=== PATIENT | male | born 1940 | race Two or more races ===

== ENCOUNTER 2017-02-12 19:27 | Emergency (ER) | payer OTHER, MEDICAID ==
--- NOTE | 2017-02-12 19:45 | EDPHY ---
H & P Time Seen by Provider: 02/12/17 19:35 HPI/ROS: CHIEF COMPLAINT: Abnormal vital signs HISTORY OF PRESENT ILLNESS: The patient presents to the emergency department by paramedics from [place]. He has a history of chronic dementia. By report he is referred to the emergency department secondary to abnormal vital signs. The patient was initially quite uncooperative did not want to come to the hospital. His history is limited by dementia. In the emergency department , the patient denies any complaints of acute pain. The patient states he is uncertain why he is here and simply would like to be return to his facility. The patient's records reveal that he has a history of diabetes, dementia and BPH. The patient has had no history of fever. Paramedics reported he was tachycardic. It is unclear whether there has been no history of vomiting or cough. REVIEW OF SYSTEMS: A comprehensive 10 point review of systems is unobtainable secondary to his dementia Source: Patient, EMS, [employer], [facility] records - Medical/Surgical History Hx Asthma: No Hx Chronic Respiratory Disease: No Hx Diabetes: Yes Hx Cardiac Disease: Yes Hx Renal Disease: No Hx Cirrhosis: No Hx Alcoholism: No Hx HIV/AIDS: No Hx Splenectomy or Spleen Trauma: No Other PMH: Hypertension, hyperlipidemia, diabetes, CVA, dementia, BPH, CAD, diverticulitis, right pelvic abscess, - Social History Smoking Status: Light smoker - Physical Exam Exam: General Appearance: Elderly obese male, no acute distress Eyes: Pupils equal and round no pallor or injection ENT, Mouth: Mucous membranes moist Respiratory: There are no retractions, lungs are clear to auscultation Cardiovascular: Regular rate and rhythm Gastrointestinal: Abdomen is soft and nontender, no masses, bowel sounds normal Neurological: Alert and oriented x1 - suspect this is baseline, 5/5 strength noted all 4 extremities without focal deficit Skin: Warm and dry, no rashes Musculoskeletal: Neck is supple nontender Extremities: symmetrical, full range of motion Constitutional: Initial Vital Signs Temperature (C) 37.1 C 02/12/17 19:44 Heart Rate 102 H 02/12/17 19:44 Respiratory Rate 18 02/12/17 19:44 Blood Pressure 128/77 H 02/12/17 19:44 O2 Sat (%) 94 02/12/17 19:44 O2 Delivery Mode Nasal Cannula O2 (L/minute) 2 Allergies/Adverse Reactions: No Known Allergies Allergy (Unverified 12/28/11 13:41) Home Medications: Medication Instructions Recorded Aspirin [Aspirin 81mg (*)] 81 mg PO DAILY 12/28/11 Finasteride [Proscar 5 MG (*)] 5 mg PO DAILY #7 tab 01/08/12 Lisinopril [Zestril 5 mg (*)] 5 mg PO DAILY #7 tab 01/08/12 Tamsulosin HCl [Flomax 0.4 MG (*)] 0.4 mg PO HS #7 cap 01/08/12 Acetaminophen [Tylenol 325mg (*)] 650 mg PO Q6 PRN 09/25/14 Atorvastatin Calcium [Lipitor 10 10 mg PO DAILY 09/25/14 mg (*)] Gabapentin [Neurontin 300 MG (*)] 300 mg PO BID@18,09/25/14 Gabapentin [Neurontin 400 MG (*)] 400 mg PO DAILY@12 09/25/14 Levothyroxine [Synthroid 25 mcg 25 mcg PO DAILY06 09/25/14 (*)] Metoprolol Tartrate [Lopressor 50 50 mg PO HS 09/25/14 mg (*)] Polyethylene Glycol 3350 [Miralax 17 gm PO DAILY 09/25/14 17 gm (*)] glipiZIDE XL [Glucotrol XL 10 MG 10 mg PO DAILY 09/25/14 (*)] guaiFENesin/DEXTROMETHORPHAN 10 ml PO Q6 PRN 09/25/14 [Robitussin Dm Oral Liquid (*)] metFORMIN HCL [Glucophage 500 mg 1,000 mg PO BIDMEAL 09/25/14 (*)] Alteplase [Cathflo Activase 2 mg 2 mg IVP PRN PRN #0 vial 10/08/14 (*)] Ampicillin/Sulbactam [Unasyn] 3 gm IV Q6 #0 vial 10/08/14 Micafungin Na [Mycamine 100Mg Vial] 100 mg IV DAILY #0 vial 10/08/14 oxyCODONE IR [Oxycodone Ir (*)] 5 - 10 mg PO Q4 PRN #0 tab 10/08/14 Medical Decision Making - Diagnostics EKG Interpretation: EKG: Complete interpretation has been separately recorded in the [employer] archive. Summary impression: Sinus rhythm, rate 98 ED Course/Re-evaluation: The patient has been completely cooperative in the emergency department he is afebrile. He has no leukocytosis. His EKG demonstrates a sinus rhythm. He is in no acute distress. His laboratory studies are within normal limits. At this point time I do feel the patient can be discharged home. He has no evidence of pneumonia or heart failure on his x-ray. Differential Diagnosis: Differential diagnosis considered includes pneumonia, metabolic abnormality, febrile illness, dehydration, renal failure - Data Points Laboratory Results: Laboratory Results 02/12/17 19:55 02/12/17 19:55 02/12/17 02/12/17 19:55 19:55 WBC 8.90 10^3/uL 10^3/uL (3.80-9.50) RBC 5.33 10^6/uL 10^6/uL (4.40-6.38) Hgb 15.9 g/dL g/dL (13.7-17.5) Hct 48.9 % % (40.0-51.0) MCV 91.7 fL fL (81.5-99.8) MCH 29.8 pg pg (27.9-34.1) MCHC 32.5 g/dL g/dL (32.4-36.7) RDW 15.3 % H % (11.5-15.2) Plt Count 218 10^3/uL 10^3/uL (150-400) MPV 9.2 fL fL (8.7-11.7) Neut % (Auto) 63.0 % % (39.3-74.2) Lymph % (Auto) 29.1 % % (15.0-45.0) [place] % (Auto) 5.5 % % (4.5-13.0) Eos % (Auto) 1.9 % % (0.6-7.6) Baso % (Auto) 0.3 % % (0.3-1.7) Nucleat RBC Rel Count 0.0 % % (0.0-0.2) Absolute Neuts (auto) 5.60 10^3/uL 10^3/uL (1.70-6.50) Absolute Lymphs (auto) 2.59 10^3/uL 10^3/uL (1.00-3.00) Absolute Monos (auto) 0.49 10^3/uL 10^3/uL (0.30-0.80) Absolute Eos (auto) 0.17 10^3/uL 10^3/uL (0.03-0.40) Absolute Basos (auto) 0.03 10^3/uL 10^3/uL (0.02-0.10) Absolute Nucleated RBC 0.00 10^3/uL 10^3/uL (0-0.01) Immature Gran % 0.2 % % (0.0-1.1) Immature Gran # 0.02 10^3/uL 10^3/uL (0.00-0.10) Sodium 137 mEq/L mEq/L (134-144) Potassium 4.5 mEq/L mEq/L (3.5-5.2) Chloride 103 mEq/L mEq/L (97-110) Carbon Dioxide 23 mEq/l mEq/l (22-31) Anion Gap 11 mEq/L mEq/L (8-16) BUN 23 mg/dL mg/dL (7-23) Creatinine 1.1 mg/dL mg/dL (0.7-1.3) Estimated GFR > 60 Glucose 83 mg/dL mg/dL (70-100) Calcium 8.9 mg/dL mg/dL (8.5-10.4) Troponin I < 0.012 ng/mL ng/mL (0.000-0.034) NT-Pro-B Natriuret Pep 58 pg/mL pg/mL (0-450) Departure - Departure Disposition: Home, Routine, Self-Care Clinical Impression: Dementia Condition: Good Instructions: Dementia (ED) Additional Instructions: 1. Please return to emergency department for any pain, fever, vomiting or other concerns. 2. The workup in the emergency department today demonstrates a a normal CBC, serum chemistries, EKG and chest x-ray.
--- NOTE | 2017-02-12 20:02 | CPEKG ---
Heart Rate: 98 RR Interval: 612 P-R Interval: 160 QRSD Interval: 82 QT Interval: 364 QTC Interval: 465 P [place]: 63 QRS [place]: -57 T Wave [place]: 13 EKG Severity - ABNORMAL ECG - EKG Impression: SINUS RHYTHM EKG Impression: LEFT ANTERIOR FASCICULAR BLOCK Electronically Signed By: Rubio Talavera 12-Feb-2017 20:04:38
[2017-02-12 20:10] LABS: % IMMATURE GRANULYOCYTES 0.2 % (0.0-1.1); ABSOLUTE IMMATURE GRANULOCYTES 0.02 10^3/uL (0.00-0.10); ADD DIFF? NO; ADD MORPH? NO; ADD SCAN? NO; ATYPICAL LYMPHOCYTE FLAG 0 (0-99); FRAGMENT RBC FLAG 0 (0-99); HEMATOCRIT 48.9 % (40.0-51.0); HEMOGLOBIN 15.9 g/dL (13.7-17.5); LEFT SHIFT FLG 0 (0-99); LIPEMIA HEMOLYSIS FLAG 80 (0-99); MEAN CELL HEMOGLOBIN 29.8 pg (27.9-34.1); MEAN CELL HEMOGLOBIN CONCENTR. 32.5 g/dL (32.4-36.7); MEAN CELL VOLUME 91.7 fL (81.5-99.8); MEAN PLATELET VOLUME 9.2 fL (8.7-11.7); PLATELET CLUMPS FLAG 0 (0-99); PLATELET COUNT 218 10^3/uL (150-400); RED BLOOD CELL COUNT 5.33 10^6/uL (4.40-6.38); RED CELL DISTRIBUTION WIDTH 15.3 % (11.5-15.2)
[2017-02-12 20:13] LABS: ANION GAP 11 mEq/L (8-16); CALCIUM 8.9 mg/dL (8.5-10.4); CARBON DIOXIDE 23 mEq/l (22-31); CHLORIDE 103 mEq/L (97-110); CREATININE 1.1 mg/dL (0.7-1.3); GLOMERULAR FILTRATION RATE > 60; GLUCOSE 83 mg/dL (70-100); POTASSIUM 4.5 mEq/L (3.5-5.2); SODIUM 137 mEq/L (134-144)
[2017-02-12 20:24] LABS: TROPONIN I < 0.012 ng/mL (0.000-0.034)
[2017-02-12 20:47] VITALS: RESP 20; O2SAT 93
[2017-02-12 22:05] VITALS: BP 118/88; PULSE 100; TEMP 98.2
== END 2017-02-12 21:50 | disposition home or self-care (01) ==
LOC: EDUNIT#
DX: F03.90 Unspecified dementia, unspecified severity, without behavioral disturbance, psychotic disturbance, mood disturbance, and anxiety (principal); I10 Essential (primary) hypertension; E11.9 Type 2 diabetes mellitus without complications; I25.10 Atherosclerotic heart disease of native coronary artery without angina pectoris; F17.200 Nicotine dependence, unspecified, uncomplicated; Z79.82 Long term (current) use of aspirin; Z86.73 Personal history of transient ischemic attack (TIA), and cerebral infarction without residual deficits

== ENCOUNTER 2017-02-18 16:04 | Inpatient (IN) | payer OTHER, MEDICAID ==
--- NOTE | 2017-02-18 16:26 | EDPHY ---
H & P Time Seen by Provider: 02/18/17 16:04 HPI/ROS: CHIEF COMPLAINT: Left-sided chest pain after fall HISTORY OF PRESENT ILLNESS: Patient says he had a mechanical fall yesterday or the day before landing on his left side and he has had severe left upper posterior chest pain ever since which is worse with movement or taking a deep breath. He presents by EMS from [place] with low oxygen saturations in the mid 80s. Patient says it hurts to take a deep breath. Denies abdominal pain nausea or vomiting. Had baron and eggs for breakfast. No hematuria. Symptoms mild at rest or moderate to severe with movement or breathing. REVIEW OF SYSTEMS: Eye: no change in vision ENT: no sore throat Cardiac: HPI no syncope Pulmonary: HPI Abdomen: no vomiting, diarrhea, abdominal pain Musculoskeletal: no back pain Skin: no rash or laceration Neuro: no headache Constitutional: no fever : no urinary symptoms A comprehensive 10 point review of systems is otherwise negative aside from elements mentioned in the history of present illness. PAST MEDICAL HISTORY: Records from [place] reviewed include dementia, diabetes, hypertension hyperlipidemia and hypothyroidism, low back pain, gout. Prostatic hypertrophy. Social history: [place] resident, tobacco smoker. General Appearance: Alert and conversant, cooperative. Eyes: No scleral icterus. ENT, Mouth: Normal mucous membranes. Respiratory: Patient is splinting, decreased breath sounds bilaterally. Cardiovascular: Regular rate and rhythm. Gastrointestinal: Abdomen is soft and non tender. Neurological: Alert and oriented x3. Normally conversant. Face symmetric, normal movement and sensation in all extremities. Skin: Warm and dry, no rashes. Musculoskeletal: No cervical thoracic or lumbar spine tenderness. He is very point tenderness to touch on his ribs just below his scapula in the back. Psychiatric: Not agitated. Emergency Department course/MDM: Patient is a history of dementia. History of fall seems clear but given his history I am not 100% convinced of his reliability. Chest x-ray and D-dimer performed. Clearly not acute coronary syndrome or cardiac by history. Supplementary oxygen applied because of room air saturation in the 80s. Trina 1828. 1839: CTA per [facility] shows no evidence of pulmonary embolism. Ordered for left-sided pleuritic chest pain with elevated D-dimer. Admission to trauma surgeon with left chest contusion with hypoxia as well as right-sided subdural. Smoking Status: Light smoker Constitutional: Initial Vital Signs Temperature (C) 37 C 02/18/17 16:15 Heart Rate 81 02/18/17 16:15 Respiratory Rate 18 02/18/17 16:15 Blood Pressure 133/69 H 02/18/17 16:15 O2 Sat (%) 93 02/18/17 16:15 O2 Delivery Mode Nasal Cannula O2 (L/minute) 3 Allergies/Adverse Reactions: No Known Allergies Allergy (Unverified 12/28/11 13:41) Home Medications: Medication Instructions Recorded Finasteride [Proscar 5 MG (*)] 5 mg PO DAILY #7 tab 01/08/12 Gabapentin [Neurontin 400 MG (*)] 400 mg PO TID 09/25/14 Levothyroxine [Synthroid 25 mcg 25 mcg PO DAILY06 09/25/14 (*)] Polyethylene Glycol 3350 [Miralax 17 gm PO HS 09/25/14 17 gm (*)] glipiZIDE XL [Glucotrol XL 10 MG 10 mg PO DAILY 09/25/14 (*)] metFORMIN HCL [Glucophage 500 mg 1,000 mg PO BIDMEAL 09/25/14 (*)] Acetaminophen [Tylenol ES 500 mg 500 mg PO Q6 PRN 02/18/17 (*)] Allopurinol [Allopurinol 300 MG 300 mg PO DAILY 02/18/17 (RX)] Atorvastatin Calcium [Lipitor 10 10 mg PO HS 02/18/17 mg (*)] Colchicine [Colchicine (*)] 1.2 mg PO DAILY 02/18/17 DULoxetine [Cymbalta 30 MG (*)] 30 mg PO HS 02/18/17 Insulin Glargine [Lantus 100 30 units SC BID 02/18/17 UNITS/ML (*)] Insulin Lispro [humALOG LISPRO 100 10 unit SC TIDMEAL 02/18/17 units/ml (*)] Lisinopril [Zestril 10 mg (*)] 10 mg PO DAILY 02/18/17 Metoprolol Succinate 75 mg PO HS 02/18/17 Tamsulosin HCl [Flomax 0.4 MG (*)] 0.4 mg PO HS 02/18/17 Medical Decision Making - Diagnostics EKG Interpretation: 12-lead EKG interpreted by me; official reading is in trace master. My interpretation is sinus rhythm with left anterior fascicular block rate 85. Imaging Results: Imaging Impressions Chest X-Ray 02/18/17 16:22 Impression: Chronic cardiomegaly without decompensation. Chest/Thorax CTA 02/18/17 17:24 Impression: 1. Limited study, with no central pulmonary embolus. 2. Coronary artery atherosclerosis. 3. Bronchitis, with scattered mucous plugging. 4. Likely benign 3 mm left upper lobe nodule. If the patient is a smoker or is high risk, unenhanced low dose chest CT for follow up in 12 months is considered optional. Otherwise, no further follow up is needed per Fleischner Society criteria. 5. Additional findings, as above. Findings discussed with Vasiliy Youssef M.D., on February 18, 2017 at 1837. E:amm Head CT 02/18/17 17:26 Impression: 1. Mixed density likely acute on chronic right subdural hematoma measuring up to 2 cm, with 11 mm right to left midline shift. 2. Additional findings as above. Findings discussed with VASILIY YOUSSEF 02/18/2017 at 18:23. Differential Diagnosis: Differential for weakness considered including but not limited to intracranial abnormality, metabolic abnormality, infection such as UTI or pneumonia. Consult/Admit Bed Type: [place] [id number] Critical Care Time: Critical care time spent by me, Dr. Youssef, exclusively with the care of this patient was 30 minutes, exclusive of PA or LIFTER/DRIVER time and exclusive of separate procedures. The organ system at risk was neurologic and pulmonary and I ordered supplemental oxygen, multiple diagnostic studies discussion with as400 consultant surgeon and neurosurgeon, to stabilize the patient and prevent worsening of the patient's condition. - Data Points Laboratory Results: Laboratory Results 02/18/17 16:07 02/18/17 16:07 02/18/17 02/18/17 02/18/17 17:50 16:07 16:07 WBC RBC Hgb Hct MCV MCH MCHC RDW Plt Count MPV Neut % (Auto) Lymph % (Auto) [place] % (Auto) Eos % (Auto) Baso % (Auto) Nucleat RBC Rel Count Absolute Neuts (auto) Absolute Lymphs (auto) Absolute Monos (auto) Absolute Eos (auto) Absolute Basos (auto) Absolute Nucleated RBC Immature Gran % Immature Gran # PT INR APTT D-Dimer Turbidity Cancelled Sodium Potassium Chloride Carbon Dioxide Anion Gap BUN Creatinine Estimated GFR Glucose Calcium Troponin I 0.012 ng/mL ng/mL (0.000-0.034) Triglycerides Cancelled Cholesterol Cancelled Cholesterol Risk Factr Cancelled LDL Cholesterol, Calc Cancelled LDL Risk Factor Cancelled VLDL Cholesterol Cancelled Non-HDL Cholesterol Cancelled HDL Cholesterol Cancelled LDL/HDL Ratio Cancelled Cholesterol/HDL Ratio Cancelled Urine Color YELLOW Urine Appearance CLEAR Urine pH 5.0 (5.0-7.5) Ur Specific [place] 1.018 (1.002-1.030) Urine Protein 1+ H (NEGATIVE) Urine Ketones NEGATIVE (NEGATIVE) Urine Blood NEGATIVE (NEGATIVE) Urine Nitrate NEGATIVE (NEGATIVE) Urine Bilirubin NEGATIVE (NEGATIVE) Urine Urobilinogen NEGATIVE EU EU (0.2-1.0) Ur Leukocyte Esterase NEGATIVE (NEGATIVE) Urine RBC 5-10 /hpf H /hpf (0-3) Urine WBC 1-3 /hpf /hpf (0-3) Ur Epithelial Cells NONE SEEN /lpf /lpf (NONE-1+) Urine Glucose NEGATIVE (NEGATIVE) 02/18/17 02/18/17 02/18/17 16:07 16:07 16:07 WBC RBC Hgb Hct MCV MCH MCHC RDW Plt Count MPV Neut % (Auto) Lymph % (Auto) [place] % (Auto) Eos % (Auto) Baso % (Auto) Nucleat RBC Rel Count Absolute Neuts (auto) Absolute Lymphs (auto) Absolute Monos (auto) Absolute Eos (auto) Absolute Basos (auto) Absolute Nucleated RBC Immature Gran % Immature Gran # PT 12.6 SEC SEC (12.0-15.0) INR 0.95 (0.83-1.16) APTT 32.3 SEC SEC (23.0-38.0) D-Dimer 0.76 ug/mLFEU H ug/mLFEU (0.00-0.50) Turbidity Sodium 137 mEq/L mEq/L (134-144) Potassium 5.4 mEq/L H mEq/L (3.5-5.2) Chloride 103 mEq/L mEq/L (97-110) Carbon Dioxide 24 mEq/l mEq/l (22-31) Anion Gap 10 mEq/L mEq/L (8-16) BUN 18 mg/dL mg/dL (7-23) Creatinine 1.0 mg/dL mg/dL (0.7-1.3) Estimated GFR > 60 Glucose 91 mg/dL mg/dL (70-100) Calcium 8.9 mg/dL mg/dL (8.5-10.4) Troponin I Triglycerides Cholesterol Cholesterol Risk Factr LDL Cholesterol, Calc LDL Risk Factor VLDL Cholesterol Non-HDL Cholesterol HDL Cholesterol LDL/HDL Ratio Cholesterol/HDL Ratio Urine Color Urine Appearance Urine pH Ur Specific [place] Urine Protein Urine Ketones Urine Blood Urine Nitrate Urine Bilirubin Urine Urobilinogen Ur Leukocyte Esterase Urine RBC Urine WBC Ur Epithelial Cells Urine Glucose 02/18/17 16:07 WBC 9.20 10^3/uL 10^3/uL (3.80-9.50) RBC 5.11 10^6/uL 10^6/uL (4.40-6.38) Hgb 15.5 g/dL g/dL (13.7-17.5) Hct 47.8 % % (40.0-51.0) MCV 93.5 fL fL (81.5-99.8) MCH 30.3 pg pg (27.9-34.1) MCHC 32.4 g/dL g/dL (32.4-36.7) RDW 15.2 % % (11.5-15.2) Plt Count 235 10^3/uL 10^3/uL (150-400) MPV 9.3 fL fL (8.7-11.7) Neut % (Auto) 67.0 % % (39.3-74.2) Lymph % (Auto) 24.1 % % (15.0-45.0) [place] % (Auto) 5.7 % % (4.5-13.0) Eos % (Auto) 2.5 % % (0.6-7.6) Baso % (Auto) 0.4 % % (0.3-1.7) Nucleat RBC Rel Count 0.0 % % (0.0-0.2) Absolute Neuts (auto) 6.16 10^3/uL 10^3/uL (1.70-6.50) Absolute Lymphs (auto) 2.22 10^3/uL 10^3/uL (1.00-3.00) Absolute Monos (auto) 0.52 10^3/uL 10^3/uL (0.30-0.80) Absolute Eos (auto) 0.23 10^3/uL 10^3/uL (0.03-0.40) Absolute Basos (auto) 0.04 10^3/uL 10^3/uL (0.02-0.10) Absolute Nucleated RBC 0.00 10^3/uL 10^3/uL (0-0.01) Immature Gran % 0.3 % % (0.0-1.1) Immature Gran # 0.03 10^3/uL 10^3/uL (0.00-0.10) PT INR APTT D-Dimer Turbidity Sodium Potassium Chloride Carbon Dioxide Anion Gap BUN Creatinine Estimated GFR Glucose Calcium Troponin I Triglycerides Cholesterol Cholesterol Risk Factr LDL Cholesterol, Calc LDL Risk Factor VLDL Cholesterol Non-HDL Cholesterol HDL Cholesterol LDL/HDL Ratio Cholesterol/HDL Ratio Urine Color Urine Appearance Urine pH Ur Specific [place] Urine Protein Urine Ketones Urine Blood Urine Nitrate Urine Bilirubin Urine Urobilinogen Ur Leukocyte Esterase Urine RBC Urine WBC Ur Epithelial Cells Urine Glucose Medications Given: Hydrocodone Bitart/Acetaminophen ([place] 5/325) 1 - 2 tab PO Q4HRS PRN PRN Reason: Pain, Moderate Able to Take PO Stop: 02/28/17 20:01 Last Admin: 02/18/17 20:32 Dose: 1 tab Atorvastatin Calcium (Lipitor) 10 mg PO [facility] Stop: 08/17/17 20:59 Last Admin: 02/18/17 21:19 Dose: 10 mg Duloxetine HCl (Cymbalta) 30 mg PO [facility] Stop: 08/17/17 20:59 Last Admin: 02/18/17 21:19 Dose: 30 mg Gabapentin (Neurontin) 400 mg PO TID [facility] Stop: 08/17/17 21:59 Last Admin: 02/18/17 21:15 Dose: 400 mg Levetiracetam 1,000 mg/ Sodium (Chloride) 110 mls @ 440 mls/hr IV BID [facility] Stop: 08/17/17 20:44 Last Admin: 02/18/17 21:42 Dose: 110 mls Insulin Glargine (Lantus Syringe) 30 units SC BID [facility] Stop: 08/17/17 20:59 Last Admin: 02/18/17 22:07 Dose: Not Given Metoprolol Succinate (Toprol Xl) 75 mg PO [facility] Stop: 08/17/17 20:59 Last Admin: 02/18/17 21:15 Dose: 75 mg Miscellaneous (Unruly-Ease 2 Gm) 2 husam TP Q1 PRN PRN Reason: Dry Nose Stop: 08/17/17 21:04 Last Admin: 02/18/17 21:11 Dose: 2 husam Morphine Sulfate (Morphine) 1 - 2 mg IVP Q1HR PRN PRN Reason: Pain, Severe Unable to Take PO Stop: 02/28/17 20:01 Last Admin: 02/18/17 22:09 Dose: 2 mg Polyethylene Glycol (Miralax) 17 gm PO HS SAL Stop: 08/17/17 20:59 Last Admin: 02/18/17 21:20 Dose: Not Given Tamsulosin HCl (Flomax) 0.4 mg PO HS SAL Stop: 08/17/17 20:59 Last Admin: 02/18/17 21:20 Dose: 0.4 mg Discontinued Medications Lidocaine (Lidoderm 5%) 1 ea TD EDNOW ONE Stop: 02/18/17 17:55 Last Admin: 02/18/17 18:23 Dose: 1 ea Miscellaneous Information (Patch Removal) 1 ea TD DAILY21 ONE Stop: 02/18/17 21:01 Last Admin: 02/18/17 21:20 Dose: Not Given Departure - Departure Disposition: [facility] Acute Clinical Impression: Subdural hematoma Contusion of left chest wall Qualifiers: Encounter type: initial encounter Qualified Code(s): S20.212A - Contusion of left front wall of thorax, initial encounter Condition: Serious
[2017-02-18 16:31] LABS: % IMMATURE GRANULYOCYTES 0.3 % (0.0-1.1); ABSOLUTE IMMATURE GRANULOCYTES 0.03 10^3/uL (0.00-0.10); ADD DIFF? NO; ADD MORPH? NO; ADD SCAN? NO; ATYPICAL LYMPHOCYTE FLAG 20 (0-99); FRAGMENT RBC FLAG 0 (0-99); HEMATOCRIT 47.8 % (40.0-51.0); HEMOGLOBIN 15.5 g/dL (13.7-17.5); LEFT SHIFT FLG 0 (0-99); LIPEMIA HEMOLYSIS FLAG 80 (0-99); MEAN CELL HEMOGLOBIN 30.3 pg (27.9-34.1); MEAN CELL HEMOGLOBIN CONCENTR. 32.4 g/dL (32.4-36.7); MEAN CELL VOLUME 93.5 fL (81.5-99.8); MEAN PLATELET VOLUME 9.3 fL (8.7-11.7); PLATELET CLUMPS FLAG 10 (0-99); PLATELET COUNT 235 10^3/uL (150-400); RED BLOOD CELL COUNT 5.11 10^6/uL (4.40-6.38); RED CELL DISTRIBUTION WIDTH 15.2 % (11.5-15.2)
[2017-02-18 16:48] LABS: ANION GAP 10 mEq/L (8-16); CALCIUM 8.9 mg/dL (8.5-10.4); CARBON DIOXIDE 24 mEq/l (22-31); CHLORIDE 103 mEq/L (97-110); GLOMERULAR FILTRATION RATE > 60; GLUCOSE 91 mg/dL (70-100); POTASSIUM 5.4 mEq/L (3.5-5.2); SODIUM 137 mEq/L (134-144)
[2017-02-18] MEDS ORDERED: IOPAMIDOL (ISOVUE 370) 100 ML BTL IV ONE (17:27)
[2017-02-18] MEDS ORDERED: LIDOCAINE 5% 1 EA PATCH TD ONE (17:54)
[2017-02-18 18:02] LABS: COLOR YELLOW; LEUKOCYTE ESTERASE,URINE NEGATIVE (NEGATIVE); NITRITE,URINE NEGATIVE (NEGATIVE)
--- NOTE | 2017-02-18 18:24 | CPEKG ---
Heart Rate: 85 RR Interval: 706 P-R Interval: 172 QRSD Interval: 92 QT Interval: 392 QTC Interval: 467 P [place]: 58 QRS [place]: -56 T Wave [place]: 32 EKG Severity - ABNORMAL ECG - EKG Impression: SINUS RHYTHM EKG Impression: LEFT ANTERIOR FASCICULAR BLOCK Electronically Signed By: Nikhil Moore 18-Feb-2017 18:47:22
[2017-02-18 18:36] LABS: INR 0.95 (0.83-1.16); PROTIME(PATIENT) 12.6 SEC (12.0-15.0)
[2017-02-18 18:37] LABS: APTT 32.3 SEC (23.0-38.0)
[2017-02-18] MEDS ORDERED: D50W 25 GM/50 ML SYR IVP PRN (19:45)
[2017-02-18] MEDS ORDERED: NALOXONE HCL 0.4 MG/ML INJ IVP PRN (20:02)
[2017-02-18] MEDS ORDERED: ACETAMINOPHEN 325 MG TAB PO PRN (20:02)
[2017-02-18] MEDS ORDERED: ONDANSETRON 4 MG/2 ML VIAL IVP PRN (20:02)
[2017-02-18] MEDS: HYDROCODONE/APAP 5/325 TAB PO PRN (20:32)
[2017-02-18] MEDS ORDERED: PATCH REMOVAL 1 EA PATCH TD ONE (21:00)
--- NOTE | 2017-02-18 21:03 | GHP ---
[f rep st] HISTORY AND PHYSICAL DATE OF ADMISSION: 02/18/2017 CHIEF COMPLAINT: Multiple falls. HISTORY OF PRESENT ILLNESS: The patient is a 76-year-old man with dementia who lives at [facility]. He has had multiple falls over the past week. His legs give out, and he also has left upper arm weakness. Today this happened and he was also noted to be hypoxic. He presented to the ER. CT scan was obtained of his chest to rule out PE and no PE was found. He also had a CT scan of his head , which showed an acute on chronic subdural with an 11 mm left to right shift. PAST MEDICAL HISTORY: Includes dementia, diabetes mellitus, hypertension, hyperlipidemia, hypothyroid, gout. PAST SURGICAL HISTORY: He had surgery to remove a blocked intestine with a bowel resection. SOCIAL HISTORY: Lives at [facility]. He does use tobacco products. FAMILY HISTORY: Noncontributory to his fall. REVIEW OF SYSTEMS: Difficult to obtain due to language barrier and the patient mumbling somewhat. PHYSICAL EXAMINATION: VITAL SIGNS: 36.4, 75, 138/82,15, 93% on 3 L. GENERAL: Pleasant, conversant man, sitting up on gurney. HEENT: Normocephalic. Small hematoma to his left posterior occiput. Pupils equal and round. No scleral icterus. No otorrhea. No rhinorrhea. Teeth fit together normally. No midface instability. LUNGS: Clear to auscultation bilaterally. CARDIAC: Regular rate. CHEST: He is tender over the left costal area, approximately ribs 8 through 10 on the lateral side. ABDOMEN: Low midline incision. Bowel sounds present. Soft, nontender, nondistended. EXTREMITIES: 5/5 strength, upper and lower extremities. NEURO: Grossly intact. PSYCH: Mood and affect normal. LABORATORY RESULTS: Reviewed, per HPI. IMPRESSION AND PLAN: A 76-year-old man with syncope and multiple falls. He is being admitted to the Trauma service overnight. We will evaluate again for tertiary survey. If no additional injuries are noted, then we will sign off. The Medicine service has been consulted to assist with his multiple medical problems, including dementia, diabetes mellitus, hypertension, hyperlipidemia, hypothyroid, gout and recurrent falls. Dr. Mena is planning to take him to the operating room tomorrow afternoon to evacuate the subdural. /[id number]/MODL MTDD
[2017-02-18] MEDS: CANN-EASE 2 GM TUBE TP PRN (21:11)
[2017-02-18] MEDS: GABAPENTIN 400 MG CAP PO SCH (21:15)
[2017-02-18] MEDS: METOPROLOL SUCCINATE XR 50 MG TAB PO SCH (21:15)
[2017-02-18] MEDS: ATORVASTATIN CALCIUM 10 MG TAB PO SCH (21:19)
[2017-02-18] MEDS: DULoxetine 30 MG CAP PO SCH (21:19)
[2017-02-18] MEDS: POLYETHYLENE GLYCOL 3350 17 GM PKT PO SCH (21:20)
[2017-02-18] MEDS: TAMSULOSIN HCL 0.4 MG CAP PO SCH (21:20)
[2017-02-18] MEDS: levETIRAcetam 1,000 MG in NS 100 ML IV SCH (21:42)
[2017-02-18] MEDS: INSULIN GLARGINE 100 UNITS/ML SYRINGE SC SCH ×2 (21:58→22:07)
[2017-02-18 23:17] LABS: ANION GAP 6 mEq/L (8-16); CALCIUM 8.7 mg/dL (8.5-10.4); CARBON DIOXIDE 26 mEq/l (22-31); CHLORIDE 99 mEq/L (97-110); GLOMERULAR FILTRATION RATE > 60; GLUCOSE 96 mg/dL (70-100); POTASSIUM 4.7 mEq/L (3.5-5.2); SODIUM 131 mEq/L (134-144)
--- NOTE | 2017-02-19 04:54 | GCON ---
[f rep st] CONSULTATION DATE OF CONSULTATION: 02/18/2017 REASON FOR CONSULTATION: I was asked by Dr. Rubio to see the patient in regard to his weakness and f alls. HISTORY OF PRESENT ILLNESS: This is a 76-year-old man who lives at [facility], who has had numerous falls over the past week. His initial fall he hit the left side of his head. He has some dementia, which makes history difficult. I am not sure if there was any loss of consciousness. He apparently has had worsening weakness, mostly on his left side. This has been over the last week. He has had m ultiple falls, and it is difficult to say exactly how many. He is not complaining of any chest pain or shortness of breath. He has complained of a headache off and on for months, which has not been wo rse. He has no nausea or vomiting. PAST MEDICAL/SURGICAL HISTORY: 1. Alzheimer dementia. 2. 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 3. Chronic kidney disease, baseline creatinine about 1.3. 4. Obstructive sleep apnea, intolerant of CPAP. 5. Chronic respiratory failure due to restrictive lung disease. 6. Vitamin D deficiency. 7. BPH. 8. Dyslipidemia. 9. Hypertension. 10. Osteoarthritis. 11. GERD. 12. History of fatty liver. FAMILY HISTORY: His father of appendicitis. SOCIAL HISTORY: He lives in longterm at [facility]. MEDICATIONS: Please see medication reconciliation. ALLERGIES: No known drug allergies. REVIEW OF SYSTEMS: A 10-point review of systems is conducted and is negative except per HPI. PHYSICAL EXAMINATION: VITAL SIGNS: Blood pressure is 130/78, heart rate 84, respiration rate 18, sa turating 93% on 3 L, temperature is 37. GENERAL: The patient is a pleasant man, who is lying comfor tably, in no acute distress. HEENT: The left side of the back part of his skull to have a scab over it. CARDIOVASCULAR: Regular rate and rhythm. No murmurs, rubs, or gallops. PULMONARY: Lungs raleigh ar to auscultation bilaterally. ABDOMEN: Soft, nontender, nondistended. SKIN: No rash: : No F oley. NEUROLOGIC: Shows him to be weak on the left arm and left leg about 4/5 compared to the right . Sensation is intact. PSYCHIATRIC: Normal mood and affect. LABORATORY DATA: Potassium is 5.4. CBC is normal. D-dimer 0.76. DATA: 1. I discussed this with Dr. Escobedo, as well as Dr. Rubio. Will admit to step-down unit. 2. EKG, which I personally reviewed and interpreted, shows left ventricular fascicular block. There are no acute ischemic changes. There is no change from his prior. 3. CT angiogram of his chest shows no PE. It did show coronary artery disease and bronchitis. He h as a left upper lobe nodule. IMPRESSION AND PLAN: This is a 76-year-old man with subdural hemorrhage. 1. Subdural hemorrhage: This will be managed per Neurosurgery. He is on aspirin. Plan is to place a drain tomorrow, per Neurosurgery. 2. Hypoxia: I believe that this is chronic. CT angiogram is negative. He does have some mucous pl ugging. Will order him incentive spirometer. He has significant pain in his left ribs, which may be making it difficult to take a deep inspiration. Will order him pulmonary hygiene, as well, with an Acapella valve. Could consider inhaled albuterol, as well. 3. Falls: I suspect that this is due to his subdural hemorrhage since he is weak on the left side w ith it being on the right. Will follow his weakness after having placed a drain. Will check a tropo sasha. His EKG is unchanged. He has no evidence of a clot. I do not see any other sign of an infecti on to cause this. 4. Hyperkalemia: Does not really fit with the rest of the clinical picture, as well as his kidney f unction. Will recheck a basic metabolic panel at 10 p.m. tonight. 5. Pulmonary nodule: This will need to be followed as an outpatient. 6. Alzheimer dementia: Watch for delirium. 7. Diabetes mellitus type 2: Will continue his home medications and follow his glucoses. 8. Benign prostatic hypertrophy: Proscar. 9. Depression: Cymbalta. 10. Gout: Allopurinol and colchicine. 11. Hyperlipidemia: Atorvastatin. 12. Hypothyroid: Synthroid. 13. Hypertension: Lisinopril, metoprolol. Thank you for involving Hospital Medicine in the care of this patient. We will continue to follow [facility]. /[id number]/MODL
--- NOTE | 2017-02-19 05:14 | GCON ---
[f rep st] CONSULTATION DATE OF CONSULTATION: 02/18/2017 The patient was seen and evaluated at approximately 6:20 p.m., in the [facility] Diane gency Department. HISTORY OF PRESENT ILLNESS: The patient is a 76-year-old man who does not take any sort of anticoagu lants, who has had a number of falls over the past 10 to 14 days. He speaks Kiswahili but his son ibarra slates for him and says that he has fallen probably 7 or 8 times in the last 10 days. He has had the se episodes where his legs give out from under him, and they have also noted that he has had likely m ore weakness on the left side than the right. He presented to the [facility] Emergen cy Department today largely with complaints of left-sided chest pain, because of some bruising after a fall. He was found to be hypoxic and was splinting around the ribs and this was likely the source of this. He also underwent a CT of the head while in the ER, which shows a roughly 15 mm subacute ri ght frontal subdural hematoma with underlying mass effect, brain compression, and about a cm to 12 mm of midline shift from right to left. He overall is doing very well. His son says that he has had s ome headaches over the last several days; however, they have not been severe. Other than the chest p ain and weakness with mild headache he does not have any other complaints. REVIEW OF SYSTEMS: A 10-point review of systems is negative other than described above in the HPI. PAST MEDICAL HISTORY: 1. Dementia, living at [facility]. 2. Diabetes. 3. Hypertension. 4. Hyperlipidemia. 5. Hypothyroidism. 6. Low back pain. 7. Gout. 8. Benign prostatic hypertrophy. SOCIAL HISTORY: The patient lives at [facility] [place], with dementia. He does smoke. Is accompanied to [facility] ER today by his son. FAMILY HISTORY: Negative for brain bleeds. ALLERGIES: No known drug allergies. MEDICATIONS: 1. Aspirin. 2. Finasteride. 3. Lisinopril. 4. Tamsulosin. 5. Tylenol. 6. Gabapentin. 7. Synthroid. 8. MiraLAX. 9. Glipizide. 10. Guaifenesin. 11. Metformin. 12. Unasyn. 13. Micafungin. 14. Oxycodone. 15. Allopurinol. 16. . 17. Cymbalta. 18. Humalog. 19. Lantus. 20. Metoprolol. PHYSICAL EXAM: VITAL SIGNS: Currently, he is afebrile with normal stable vital signs. GENERAL: He is awake, alert, and oriented x3. HEENT: Pupils are equal, round, and react to light. His extraoc ular movements are intact. Face symmetric. Tongue is midline. He is edentulous. EXTREMITIES: He has 5/5 strength in the deltoids, biceps, and triceps, with gripping also 5/5 bilaterally. He does h ave an obvious left arm pronator drift. Sensation in the upper extremities is intact. In the lower extremities he has a very slight weakness of the left leg compared to the right but no obvious drift of the leg. Sensation in the leg is also intact. His deep tendon reflexes are diminished throughout . IMAGING REVIEW: See HPI. LABORATORY DATA: PT is 12.6, INR 0.95, PTT is 32.3, D-dimer 0.76. White count is 9.2, hemoglobin 15 .5, hematocrit 47.8, platelet count is 235,000. Sodium 137, potassium 5.4, BUN is 18, creatinine 1.0 , glucose is 91. Troponin is negative. ASSESSMENT AND PLAN: The patient is a 76-year-old man who presents after a number of falls with prim arily posterior chest pain from 1 of these falls. Overall he is doing quite well with fairly mild le ft arm weakness. CT shows subacute right frontal subdural hematoma with underlying brain compression and shift. Given that he is overall doing quite well at this time there is no emergent issue. I di d speak with the patient and his son about the likelihood of needing mini craniotomy for evacuation o f this subdural hematoma, in terms of preventing him from declining and hopefully prevent him from kenyon ving future falls. The falls may or may not be related to the subdural and I expect this subdural wa s probably caused by his initial falls. It is possible that his gabapentin also may have something t o do with his balance issues. He has been admitted to the trauma service and they will continue to w ork up his chest contusions and his hypoxia. We will plan on surgery tomorrow, either myself or my p artner, Dr. Ortega, and therefore, we will keep him n.p.o. after midnight. I have explained to the pa tient and the family all the risks and benefits of surgery and they are willing to proceed. Thanks for the kind consultation. Please do not hesitate to contact us with any further questions or concerns. /[id number]/MODL
[2017-02-19] MEDS: LEVOTHYROXINE 25 MCG TAB PO SCH (06:36)
[2017-02-19] MEDS: CANN-EASE 2 GM TUBE TP PRN (06:37)
[2017-02-19] MEDS: INSULIN GLARGINE 100 UNITS/ML SYRINGE SC SCH ×2 (07:33→22:46)
[2017-02-19] MEDS: INSULIN LISPRO 100 UNIT/ML SC SCH ×3 (07:33→18:00)
[2017-02-19] MEDS: FINASTERIDE 5 MG TAB PO SCH (07:55)
[2017-02-19] MEDS: ALLOPURINOL 300 MG TAB PO SCH (07:55)
[2017-02-19] MEDS: COLCHICINE 0.6 MG CAP/TAB PO SCH (07:55)
[2017-02-19] MEDS: LISINOPRIL 10 MG TAB PO SCH (07:56)
[2017-02-19] MEDS: GABAPENTIN 400 MG CAP PO SCH ×3 (07:56→22:43)
[2017-02-19] MEDS: levETIRAcetam 1,000 MG in NS 100 ML IV SCH ×2 (08:30→23:15)
--- NOTE | 2017-02-19 09:35 | SOAPPROG ---
SOAP Progress Note Assessment/Plan: Assessment: 76 yo M admitted with right subacute SDH Plan: stable plan for OR today at 4:30 ok to eat breakfast then NPO please call with neuro changes discussed with Dr Mena 02/19/17 09:33 Subjective: no headache, no N/V. Objective: Vital Signs Temp Pulse Resp BP Pulse Ox 36.6 C 58 L 22 H 116/78 98 02/19/17 08:00 02/19/17 09:17 02/19/17 09:17 02/19/17 09:17 02/19/17 09:17 Laboratory Results 02/18/17 22:50 02/18/17 02/19/17 02/20/17 05:59 05:59 05:59 Intake Total 500 Output Total 250 Balance 250 PT 12.6 SEC (12.0-15.0) 02/18/17 16:07 INR 0.95 (0.83-1.16) 02/18/17 16:07 somnolent, opens eyes to tactile stimuli, +FC PERRL, EOMI, no facial droop MADELYN x 4 + light touch ICD10 Worksheet Patient Problems: Problems Problem Status Onset Contusion of left chest wall Acute Subdural hematoma Acute Diverticulitis Acute
--- NOTE | 2017-02-19 10:48 | WOCRNPDOC ---
WOCRN Advanced Assessment Note - Skin Integrity Problem, Advanced Assess Coccyx Dressing Type: Open to Air Exudate Amount: None Dulce Maria Wound Tissue: Macerated Wound Bed Constitution: Smooth Tissue, Adhered Slough (70%) Site Measurement - Head-to-Toe Length X Width X Depth (cm): 3x0.3x0.3. This is the total measurement of two wounds. Each was approx 1x0.3x0.3 Skin Integrity Problem Comment: No pressure involvement. Extensive intertriginous dermatitis/moisture related breakdown over a long period of time. Treat with calazime and air cushion on chair. Wound care will sign off.
--- NOTE | 2017-02-19 13:15 | GCON ---
[f rep st] CONSULTATION CRITICAL CARE CONSULT DATE OF CONSULTATION: 02/19/2017 HISTORY OF PRESENT ILLNESS: This patient is a 76-year-old male with underlying dementia who has had multiple falls over the past week and was admitted yesterday and presented to the emergency [facility] which showed an wrknh-[id number]-frkiigb subdural hematoma with 11 mm shift. He was also found to be hypox ic and had a CT scan that showed no pulmonary embolism. There were some concerns about a pulmonary c ontusion, but he has otherwise been stable. He has a history of sleep apnea but intolerant of CPAP a nd it is unclear what his home oxygen requirement is if any. REVIEW OF SYSTEMS: Otherwise negative. PAST MEDICAL HISTORY: Includes dementia, diabetes, hypertension, hyperlipidemia, hypothyroidism, gou t and obesity. PAST SURGICAL HISTORY: Includes a bowel resection due to small bowel obstruction. SOCIAL HISTORY: He is a smoker but it is unclear what level. No known alcohol. Lives at [place] . FAMILY HISTORY: Noncontributory. CURRENT MEDICATIONS: Include [place], allopurinol, Lipitor, colchicine, Cymbalta, Proscar, Neurontin, Lantus, Humalog, Keppra, Synthroid, Zestril, Toprol, morphine, Narcan, Zofran, MiraLAX, Flomax. PHYSICAL EXAM: VITAL SIGNS: His blood pressure was 116/78, with a heart rate of 58, respirations 22 , oxygen saturation 98% on 2 L. GENERAL: He was an obese Albanian-speaking only male who did speak t o me via nutrition services associate. He really had no complaints. He was awake and alert and in no apparent distre ss. HEENT: Pupils were equally round, reactive to light. Nonicteric and noninjected. Mucous membr anes were moist without erythema or exudate. NECK: Supple without adenopathy or jugular vein disten tion. LUNGS: Breath sounds were clear to auscultation bilaterally without wheezes, rubs or rales. HEART: Regular rate and rhythm without murmurs, rubs, or gallops, although this was somewhat distant probably due to his obesity. ABDOMEN: Soft, nontender, nondistended without hepatosplenomegaly. E XTREMITIES: Showed no clubbing, cyanosis, or edema. NEUROLOGIC: Intact. Strength is 5/5 in all 4 extremities. Cranial nerves appeared to be intact. SKIN: Warm and dry without evidence of rash. OBJECTIVE DATA: Includes a CT scan of his head as described above. CBC was normal including hematoc rit of 47.8. His sodium was 137 on admission, down to 131 today with a potassium of 4.7, chloride 99 , bicarb 26, BUN 16, creatinine 1.0, glucose 105. Troponin was negative. Urinalysis was also done w hich was unremarkable. ASSESSMENT AND PLAN: 1. Multiple falls of uncertain etiology. With his underlying dementia, it is hard to know what is c ausative, but he does have a subdural hematoma with a shift and is going to surgery for evacuation to day. 2. Hypoxemia. I suspect there is an element of chronic hypoxemia probably related to his underlying chronic obstructive pulmonary disease. Once he is back from surgery, we can evaluate this further. He may require positive airway pressure ventilation, particularly in the postoperative period. 3. Hyponatremia, is quite mild compared to yesterday, and we will look at serum and urine osmolaliti es and act accordingly. /[id number]/MODL
[2017-02-19] MEDS: HYDROCODONE/APAP 5/325 TAB PO PRN (13:57)
[2017-02-19] MEDS ORDERED: ceFAZolin 2 GM/DEXTROSE 100 ML IV ONE (14:07)
[2017-02-19] MEDS ORDERED: SURGIFLO MATRIX KIT WITH THROMBIN TP ONE (15:11)
[2017-02-19] MEDS ORDERED: BACITRACIN ZINC 14.2 GM OINTTUBE TP ONE (15:11)
[2017-02-19] MEDS ORDERED: BUPIVACAINE 0.25% 30 ML SDV ONE (15:12)
[2017-02-19] MEDS ORDERED: AVITENE POWDER 1 GM JAR TP ONE (15:12)
[2017-02-19] MEDS ORDERED: THROMBIN (BOVINE) 5,000 UNIT VIAL TP ONE (15:12)
[2017-02-19] MEDS ORDERED: CHLORHEXIDINE GLUC HIBICLENS 118 ML BTL TP ONE (15:12)
[2017-02-19] MEDS ORDERED: BACITRACIN 50,000 UNITS/10 ML SYR IRR ONE ×3 (15:13→18:24)
--- NOTE | 2017-02-19 15:28 | HOSPPROG ---
Hospitalist Progress Note Assessment/Plan: 76 yo M w dementia here w sdh, falls DM: sugars at goal today continue current care sdh: surgical evac today on keppra dementia: minimize meds, particularlly anticholinergic hyperkalemia: resolved pulm nodule: folow up will tell family 02/20 proph: scd's dispo: inpt Subjective: patient without complaints. case d/w dr yanez Objective: Vital Signs Temp Pulse Resp BP Pulse Ox 36.6 C 62 19 99/44 L 96 02/19/17 15:14 02/19/17 15:14 02/19/17 15:14 02/19/17 14:00 02/19/17 15:14 Laboratory Results 02/18/17 22:50 02/18/17 02/19/17 02/20/17 05:59 05:59 05:59 Intake Total 500 Output Total 250 Balance 250 PT 12.6 SEC (12.0-15.0) 02/18/17 16:07 INR 0.95 (0.83-1.16) 02/18/17 16:07 - Physical Exam Constitutional: no apparent distress, appears nourished Eyes: PERRL, anicteric sclera Ears, Nose, Mouth, Throat: moist mucous membranes, hearing normal Cardiovascular: regular rate and rhythym, no murmur, rub, or gallop Respiratory: no respiratory distress, no rales or rhonchi Gastrointestinal: normoactive bowel sounds, soft, non-tender abdomen Genitourinary: No church in urethra Skin: warm, normal color Musculoskeletal: full muscle strength Neurologic: No AAOx3 ICD10 Worksheet Patient Problems: Problems Problem Status Onset Contusion of left chest wall Acute Subdural hematoma Acute Diverticulitis Acute
[2017-02-19] MEDS ORDERED: MANNITOL 20% 100 GM/500 ML BAG IV ONE (15:30)
[2017-02-19] MEDS ORDERED: GENTAMICIN SULFATE 80 MG/2 ML VIAL ONE (15:31)
[2017-02-19] MEDS ORDERED: D10W 250 ML PRN HYPOGLYCEMIA IV (16:00)
[2017-02-19] MEDS ORDERED: PROPOFOL/EMULSION 500 MG/50 ML BOTTLE IV ONE (17:00)
--- NOTE | 2017-02-19 17:03 | PDANEPAE ---
ANE History of Present Illness s/p fall here for crani for sdh ANE Past Medical History - Cardiovascular History Hx Hypertension: Yes Hx Arrhythmias: No Hx Coronary Artery / Peripheral Vascular Disease: Yes Hx CHF / Valvular Disease: No Hx Palpitations: No - Pulmonary History Hx COPD: Yes Hx Asthma/Reactive Airway Disease: No Hx Recent Upper Respiratory Infection: No Hx Oxygen in Use at Home: Yes O2 in Use at Home (L/minute): 2.5 Hx Sleep Apnea: No Sleep Apnea Screening Result - Last Documented: Positive - Endocrine History Hx Diabetes: Yes Hypothyroid: No Hyperthyroid: No Obesity: moderate - Renal History Hx Renal Disorders: Yes - Liver History Hx Hepatic Disorders: No - Neurological & Psychiatric Hx Hx Neurological and Psychiatric Disorders: Yes Neurological / Psychiatric History Comment: dementia ANE Review of Systems Review of Systems: ANE Patient History - Allergies Allergies/Adverse Reactions: No Known Allergies Allergy (Unverified 12/28/11 13:41) - Home Medications Home Medications: Gabapentin [Neurontin 400 MG (*)] 400 mg PO TID 09/25/14 [Last Taken 02/18/17] Levothyroxine [Synthroid 25 mcg (*)] 25 mcg PO DAILY06 09/25/14 [Last Taken 11/29] Polyethylene Glycol 3350 [Miralax 17 gm (*)] 17 gm PO HS 09/25/14 [Last Taken ] glipiZIDE XL [Glucotrol XL 10 MG (*)] 10 mg PO DAILY 09/25/14 [Last Taken ] metFORMIN HCL [Glucophage 500 mg (*)] 1,000 mg PO BIDMEAL 09/25/14 [Last Taken 02/18/17] Acetaminophen [Tylenol ES 500 mg (*)] 500 mg PO Q6 PRN 02/18/17 [Last Taken 11/29] Allopurinol [Allopurinol 300 MG (RX)] 300 mg PO DAILY 02/18/17 [Last Taken Unknown] Atorvastatin Calcium [Lipitor 10 mg (*)] 10 mg PO HS 02/18/17 [Last Taken ] Colchicine [Colchicine (*)] 1.2 mg PO DAILY 02/18/17 [Last Taken 02/18/17] DULoxetine [Cymbalta 30 MG (*)] 30 mg PO HS 02/18/17 [Last Taken 02/17/17] Insulin Glargine [Lantus 100 UNITS/ML (*)] 30 units SC BID 02/18/17 [Last Taken 02/18/17] Insulin Lispro [humALOG LISPRO 100 units/ml (*)] 10 unit SC TIDMEAL 02/18/17 [ Last Taken 02/18/17] Lisinopril [Zestril 10 mg (*)] 10 mg PO DAILY 02/18/17 [Last Taken 02/18/17] Metoprolol Succinate 75 mg PO HS 02/18/17 [Last Taken 02/17/17] Tamsulosin HCl [Flomax 0.4 MG (*)] 0.4 mg PO HS 02/18/17 [Last Taken 02/17/17] - NPO status NPO Since - Liquids (Date): 02/19/17 NPO Since - Liquids (Time): 07:55 NPO Since - Solids (Date): 02/19/17 NPO Since - Solids (Time): 07:55 - Smoking Hx Smoking Status: Light smoker ANE Labs/Vital Signs - Labs Result Diagrams: 02/18/17 16:07 02/18/17 22:50 - Vital Signs Blood Pressure: 95/56 Heart Rate: 62 Respiratory Rate: 17 O2 Sat (%): 92 Height: 177.8 cm Weight: 122.9 kg
[2017-02-19] MEDS ORDERED: fentaNYL 100 MCG/2 ML INJ ONE ×2 (17:22)
[2017-02-19] MEDS ORDERED: PHENYLEPHRINE HCL 100 MCG/ML SYR ONE (17:46)
[2017-02-19] MEDS ORDERED: epHEDrine SULFATE 10 MG/ML SYR ONE (18:03)
[2017-02-19] MEDS ORDERED: ROCURONIUM 50 MG/5 ML VIAL ONE (18:08)
[2017-02-19] MEDS ORDERED: SUGAMMADEX SODIUM 200 MG/2 ML VIAL IVP ONE (18:39)
--- NOTE | 2017-02-19 18:45 | SOAPPROG ---
SOAP Progress Note Assessment/Plan: Assessment: seen earlier this am/ vs stable/ difficulty following instructions but cooperative afebrile/ cxr clear and stable/ cor rrr/ abd soft/ extremities ok tertiary survey stable Plan:subdural evac today 02/19/17 18:43 Objective: Vital Signs Temp Pulse Resp BP Pulse Ox 36.6 C 62 17 95/56 L 92 02/19/17 15:14 02/19/17 17:03 02/19/17 17:03 02/19/17 17:03 02/19/17 17:03 Laboratory Results 02/18/17 22:50 02/18/17 02/19/17 02/20/17 05:59 05:59 05:59 Intake Total 500 150 Output Total 250 Balance 250 150 PT 12.6 SEC (12.0-15.0) 02/18/17 16:07 INR 0.95 (0.83-1.16) 02/18/17 16:07 ICD10 Worksheet Patient Problems: Problems Problem Status Onset Contusion of left chest wall Acute Subdural hematoma Acute Diverticulitis Acute
--- NOTE | 2017-02-19 19:23 | POSTOPPROG ---
Post Op Note Date of Operation: 02/19/17 Surgeon: Leonel Mena Master Certified Rv Technician: Carlos Grewal Anesthesiologist: Santi Jackson Pre-op Diagnosis: subdural hematoma Post-op Diagnosis: SDH Indication: Subdural hematoma Procedure: Craniotomy Findings: chronic subdural Inf/Abcess present in the surg proc area at time of surgery?: No Depth: Organ Space EBL: 50-100 Drains: Brendan Porter
--- NOTE | 2017-02-19 19:25 | NEUSURGPN ---
Date of Surgery: 02/19/17 Post Op Day: 0 Assessment/Plan: 76M s/p evacuation of SDH -ICU care -advance diet as tolerated -HOB flat overnight, may raise to 10 degrees to eat -SBP<140 overnight -SHANIQUE to thumbprint suction -High flow nonrebreather overnight -CTH in the am -likely continue church for several days. plan discussed with Dr. Mena Subjective: groggy from anesthesia following commands, israeli speaking Objective: alert no facial droop MAEx4, follows commands incision cdi shanique x1 to thumprint suction Urinary Catheter in Place: Yes Urinary Catheter Indication: Accurate I & O Required - Physician Discussed Patient with DrRomelia: Trina Patient Seen by : Trina Neurosurgery Physical Exam - Vitals, I&O, Labs I and O 02/18/17 02/19/17 02/20/17 05:59 05:59 05:59 Intake Total 500 150 Output Total 250 Balance 250 150 Weight 122.9 kg 122.9 kg Intake: Oral (ml) 400 150 IV Infused (ml) 100 levETIRAcetam 1,000 mg In 100 Ns 100 ml @ 440 mls/hr IV BID [facility] Rx#:[id number] Output: Urine (ml) 250 Bedside Commode 250 Other: Number of Voids 1 Incontinence 2 3 Toilet 2 Vital Signs Temp Pulse Resp BP Pulse Ox 36.6 C 62 17 95/56 L 92 02/19/17 15:14 02/19/17 17:03 02/19/17 17:03 02/19/17 17:03 02/19/17 17:03 Laboratory Results 02/18/17 22:50 ICD10 Worksheet Patient Problems: Problems Problem Status Onset Contusion of left chest wall Acute Subdural hematoma Acute Diverticulitis Acute
[2017-02-19] MEDS ORDERED: niCARdipine/NACL 200 ML IV PRN (19:31)
[2017-02-19] MEDS ORDERED: MAGNESIUM HYDROXIDE 30 ML UDCUP PO PRN (19:31)
[2017-02-19] MEDS ORDERED: BISACODYL 10 MG SUPP PR PRN (19:31)
--- NOTE | 2017-02-19 19:33 | POSTANESTH ---
Post Anesthetic Evaluation Cardiovascular Status: Normal, Stable Respiratory Status: Normal, Stable Level of Consciousness/Mental Status: Can Participate in Eval Pain Control: Adequate, Prn Tx Ordered Nausea/Vomiting Control: Adequate, Prn Tx Ordered Complications Possibly Related to Anesthesia: None Noted
[2017-02-19] MEDS ORDERED: DEXMEDETOMIDINE HCL 400 MCG in NS 100 ML IV SCH (21:00)
--- NOTE | 2017-02-19 21:21 | GOP ---
[f rep st] OPERATIVE REPORT DATE OF OPERATION: 02/19/2017 SURGEON: Leonel Mena MD LAYOUT DESIGNER: Carlos Grewal PAC. ANESTHESIA: GETA. PREOPERATIVE DIAGNOSIS: Right-sided subacute subdural hematoma in the frontotemporoparietal region w ith brain compression and recurrent falls. POSTOPERATIVE DIAGNOSIS: Right-sided subacute subdural hematoma in the frontotemporoparietal region with brain compression and recurrent falls. PROCEDURE PERFORMED: Right frontotemporoparietal craniotomy for evacuation of subacute subdural reena jenniffer. FINDINGS: Mixed density subdural, consistent with a subacute age with some rebound of the brain duri ng the procedure. SPECIMENS: None. ESTIMATED BLOOD LOSS: 50 cc. DESCRIPTION OF PROCEDURE: The patient was brought into the operating room and a sign-in was dorothy hermosillo. He was given 2 g of IV Ancef to prevent postoperative infection. He has already been on 1 mg b.i .d. of IV Keppra. He was induced under general anesthesia and intubated without difficulty. A Garcia catheter was placed. Appropriate IV access was obtained. SCDs were placed to prevent postoperative DVT. He was placed supine on the operating table and his head was placed in a horseshoe headrest in a neutral position. His scalp was washed with chlorhexidine shampoo and rubbing alcohol which was a llowed to dry. A small amount of hair was shaved. 1 cm to the right of midpupillary line in the fro ntotemporoparietal region a linear incision approximately 6 cm long in the sagittal plane was traced just above the superior temporal line on the right side. The scalp was sterilized with chlorhexidine shampoo which was allowed to dry and then a sterile surgical field was created with blue towels and Ioban, and a sterile cranial drape. Prior to beginning the procedure, all members of Surgery, Anesthesia and Nursing went over the necess radha checklist items during our time-out and agreed to proceed with the operation as one. 10 cc of 0.25% Marcaine with 1:200,000 parts of epinephrine was injected along the planned incision l ine. A #15 scalpel was used to incise the skin and dermis into the subcutaneous tissues down to the bone. A periosteal elevator was used to sweep the periosteum laterally off the skull and a self-pranav ining retractor was placed. Two bur holes were placed with a perforating drill bit in the most anter ior aspect and the posterior aspect of the incision. A #3 [place] was used to dissect the dura off the cranium through the bur holes and then a craniotome was used to complete turning of our craniotom y flap. The cranial flap was placed on the back table in a sterile solution. The oval-shaped crania l defect was then hemostased and irrigated and then the dura was opened in a cruciate fashion with a fresh #11 scalpel. Upon opening the dura, there was a gush of liquified maroon-colored blood, consistent with a subacute subdural hematoma and all this was evacuated with normal saline. The dural leaflets were folded lacey k and maintained in position with 4-0 Nurolon sutures tacked up to the drapes. The remainder of the hematoma was washed out. There was 1 membrane lying between the cranium and the brain surface which was gently elevated and fenestrated and then buzzed away completely with bipolar electrocautery. The obviously bleeding membranes and bleeding dura were all cauterized and multiple rounds of hematoma e vacuation was performed with irrigation with normal saline. There was nothing active bleeding in the operative bed so a #7 flat SVETA was placed in the subdural space. It was noted that the brain seemed to rebound and come closer to the surface during the case itself. At this point in time, a final round of irrigation was performed and 1 more chance at hemostasis as w ell was taken. The dura was closed with 4-0 Nurolon suture and the epidural space was compressed wit h Surgiflo and thrombin-soaked Gelfoam to prevent postoperative hematoma recurrence. The bone was re plated with cranial plates and 4 mm screws and resecured to the hopland cranium. The wound was irriga sadaf with antibiotic solution to prevent postoperative infection and the galea was closed with 2-0 pop -off Vicryl sutures in an inverted and interrupted fashion. The skin was closed with a 4-0 Monocryl suture in a running fashion. The drainage tube was hooked up to a bulb to full compress suction with instructions for thumbprint s uction only after the patient left the operating room. The drainage tube was secured to the skin wit h a stitch. The cranial drapes were removed. The wound was cleaned with a wet and dry sponge and a layer of bacitracin was applied to the incision line as a dressing. The patient was returned to Anesthesia, extubated without difficulty and placed in his ICU bed in a f lat bed rest position. All counts were correct and there were no immediate surgical or anesthetic co mplications. I was there for the entirety of the procedure. The patient was transferred to his ICU bed in stable neurologic and medical condition. I updated his family in Slovenian regarding the details of the procedure and they were grateful of the care I had given their loved one. Orders were given for flat bed rest and oxygen via high-flow nasal cannula overnight, subdural drain to thumbprint suction and a repeat noncontrast head CT in the a.m. as well as strict neurologic checks every hour overnight. COMPLICATIONS: None. IMPLANTS: Praveena cranial plates and 4 mm screws. INDICATIONS FOR PROCEDURE: The patient is a 76-year-old Slovenian-speaking male on aspirin 81 mg daily who has had recurrent falls recently, came to the hospital through the emergency room yesterday at t he urging of his family and was found to have a right-sided frontotemporoparietal subacute subdural h ematoma with brain compression and midline shift and a corresponding left-sided weakness with a prona tor drift. Based on the fact that he had a large subdural with brain compression which was symptomat ic with positive exam findings, we did recommend evacuation. He and his family were counseled, risks , benefits, and alternatives discussed. All questions were answered in Slovenian and the patient's roberta espinoza signed informed consent for him prior to the procedure. /[id number]/MODL
[2017-02-19] MEDS ORDERED: OLANZapine 10 MG/2 ML VIAL IM ONE (22:15)
[2017-02-19] MEDS: ATORVASTATIN CALCIUM 10 MG TAB PO SCH (22:31)
[2017-02-19] MEDS: DULoxetine 30 MG CAP PO SCH (22:32)
[2017-02-19] MEDS: DEXMEDETOMIDINE HCL 1,000 MCG in NS 250 ML IV SCH (22:32)
[2017-02-19] MEDS: NS W/ 20 KCl/L 1,000 ML IV SCH (22:41)
[2017-02-19] MEDS: SENNOSIDES/DOCUSATE SODIUM TAB PO SCH (22:43)
[2017-02-19] MEDS: TAMSULOSIN HCL 0.4 MG CAP PO SCH (22:43)
[2017-02-19] MEDS: POLYETHYLENE GLYCOL 3350 17 GM PKT PO SCH (22:43)
[2017-02-19] MEDS: METOPROLOL SUCCINATE XR 50 MG TAB PO SCH (22:43)
[2017-02-20] MEDS: ceFAZolin 2 GM/DEXTROSE 100 ML IV SCH ×3 (01:18→16:23)
[2017-02-20] MEDS: DEXMEDETOMIDINE HCL 1,000 MCG in NS 250 ML IV SCH ×3 (05:06→23:58)
[2017-02-20] MEDS: LEVOTHYROXINE 25 MCG TAB PO SCH (06:43)
--- NOTE | 2017-02-20 07:52 | NEUSURGPN ---
Date of Surgery: 02/19/17 Post Op Day: 1 Assessment/Plan: 76M s/p evacuation of SDH -ICU care -advance diet as tolerated -wean sedation as able. -continue q2 exams, minimize sedation for good exams. 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 plan discussed with Dr. Mena Subjective: mumbling, mildly sedated, follows some commands. Objective: alert speech mumbled no facial droop MAEx4, severe pronator drift on Left arm, poor sales outfitter strength on left arm. BLE appear 5/5= +LT incision c/d/i drain 300 out overnight. Urinary Catheter in Place: Yes Urinary Catheter Indication: Accurate I & O Required Catheter Insertion Date: 02/19/17 - Physician Discussed Patient with : Tr[facility] Neurosurgery Physical Exam - Vitals, I&O, Labs I and O 02/19/17 02/20/17 02/21/17 05:59 05:59 05:59 Intake Total 500 1411 Output Total 250 1605 Balance 250 -194 Weight 122.9 kg 122.9 kg Intake: Oral (ml) 400 150 IV Infused (ml) 100 1261 Dexmedetomidine HCl 1,000 350 mcg In Ns 250 ml @ Per Protocol IV CONT SAL Rx#: [id number] NS W/ 20 KCl/L 1,000 ml @ 686 100 mls/hr IV CONT SAL Rx#:[id number] ceFAZolin 2 GM/DEXTROSE 115 100 ml @ 200 mls/hr IV Q8H SAL Rx#:[id number] levETIRAcetam 1,000 mg In 100 110 Ns 100 ml @ 440 mls/hr IV BID SAL Rx#:[id number] Output: Urine (ml) 250 1300 Bedside Commode 250 Catheter 1300 SVETA Drain Output (ml) 305 Right Posterior Head 305 Brendan Porter Other: Number of Voids 1 Incontinence 2 3 Toilet 2 Vital Signs Temp Pulse Resp BP Pulse Ox 36.3 C 72 20 145/79 H 99 02/20/17 00:15 02/20/17 06:00 02/20/17 06:00 02/20/17 06:00 02/20/17 06:00 Laboratory Results 02/18/17 22:50 ICD10 Worksheet Patient Problems: Problems Problem Status Onset Contusion of left chest wall Acute Subdural hematoma Acute Diverticulitis Acute
[2017-02-20] MEDS: NS W/ 20 KCl/L 1,000 ML IV SCH ×2 (07:59→08:00)
[2017-02-20] MEDS: levETIRAcetam 1,000 MG in NS 100 ML IV SCH ×2 (08:05→21:44)
--- NOTE | 2017-02-20 08:53 | TRAUMAPN ---
Assessment/Plan: 76yo M s/p fall c SDH s/p craniotomy Neuro: sleepy but nn-focal, seems to favor R side but DELAROSA spontaneously. SVETA serosang, CT this AM reassuring Pulm: stable on supp NC, pulm toilet CV: HDS Abd: obese, soft has good bowel sounds Renal: UOP appropriate, church Dispo: plan mostly per NSG. wean precedex. Remain ICU today Subjective: sleepy but arousable. Denies pain Objective: Vital Signs Temp Pulse Resp BP Pulse Ox 36.4 C 57 L 14 118/66 96 02/20/17 08:00 02/20/17 08:00 02/20/17 08:00 02/20/17 08:00 02/20/17 08:00 Laboratory Results 02/18/17 22:50 02/19/17 02/20/17 02/21/17 05:59 05:59 05:59 Intake Total 500 1411 Output Total 250 1605 Balance 250 -194 PT 12.6 SEC (12.0-15.0) 02/18/17 16:07 INR 0.95 (0.83-1.16) 02/18/17 16:07
[2017-02-20] MEDS: INSULIN LISPRO 100 UNIT/ML SC SCH ×3 (09:45→17:36)
[2017-02-20] MEDS: GABAPENTIN 400 MG CAP PO SCH ×3 (10:42→22:13)
[2017-02-20] MEDS: FINASTERIDE 5 MG TAB PO SCH (10:42)
[2017-02-20] MEDS: SENNOSIDES/DOCUSATE SODIUM TAB PO SCH ×2 (10:42→22:13)
[2017-02-20] MEDS: LISINOPRIL 10 MG TAB PO SCH (10:43)
[2017-02-20] MEDS: ALLOPURINOL 300 MG TAB PO SCH (10:43)
[2017-02-20] MEDS: COLCHICINE 0.6 MG CAP/TAB PO SCH (10:43)
[2017-02-20] MEDS: INSULIN GLARGINE 100 UNITS/ML SYRINGE SC SCH ×2 (10:49→21:44)
--- NOTE | 2017-02-20 14:46 | HOSPPROG ---
Hospitalist Progress Note Assessment/Plan: 76 yo M w dementia here w sdh, falls DM: sugars at goal today continue current care sdh: surgical evac today on keppra dementia: minimize meds, particularlly anticholinergic hyperkalemia: resolved pulm nodule: folow up will tell when patient is more alert proph: scd's dispo: inpt Subjective: case d/w dr yanez. agitated earlier, now somnolent Objective: Vital Signs Temp Pulse Resp BP Pulse Ox 36.6 C 64 16 103/56 L 96 02/20/17 12:00 02/20/17 14:00 02/20/17 14:00 02/20/17 14:00 02/20/17 14:00 02/19/17 02/20/17 02/21/17 05:59 05:59 05:59 Intake Total 500 1411 Output Total 250 1605 670 Balance 250 -194 -670 PT 12.6 SEC (12.0-15.0) 02/18/17 16:07 INR 0.95 (0.83-1.16) 02/18/17 16:07 - Physical Exam Constitutional: no apparent distress, appears nourished Eyes: PERRL, anicteric sclera Ears, Nose, Mouth, Throat: moist mucous membranes, hearing normal Cardiovascular: regular rate and rhythym, no murmur, rub, or gallop Respiratory: no respiratory distress, no rales or rhonchi Gastrointestinal: normoactive bowel sounds, soft, non-tender abdomen Genitourinary: No church in urethra Skin: warm, normal color Musculoskeletal: full muscle strength ICD10 Worksheet Patient Problems: Problems Problem Status Onset Contusion of left chest wall Acute Subdural hematoma Acute Diverticulitis Acute
--- NOTE | 2017-02-20 14:50 | PDINTPN ---
Child Development Professor Progress Note Assessment/Plan: Assessment/plan: 76 M s/p fall with SDH, s/p evacuation. History of untreated TYLER as well as DM. * s/p fall with SDH stable * Delerium- combative off precedex drip. Avoid benzos * TYLER- not likely to tolerate CPAP, USE o2 PRN * DM controlled Subjective: Increasingly uncooperative and agitated Objective: Vital Signs Temp Pulse Resp BP Pulse Ox 36.6 C 64 16 103/56 L 96 02/20/17 12:00 02/20/17 14:00 02/20/17 14:00 02/20/17 14:00 02/20/17 14:00 02/19/17 02/20/17 02/21/17 05:59 05:59 05:59 Intake Total 500 1411 Output Total 250 1605 670 Balance 250 -194 -670 PT 12.6 SEC (12.0-15.0) 02/18/17 16:07 INR 0.95 (0.83-1.16) 02/18/17 16:07 Physical Exam - Physical Exam General Appearance: no apparent distress, anxiety, obese EENT: PERRL/EOMI Respiratory: lungs clear, normal breath sounds, No respiratory distress Cardiac/Chest: regular rate, rhythm, No edema Abdomen: non-tender, soft, No distended Skin: normal color, warm/dry Lymphatic: no adenopathy Extremities: No pedal edema Neuro/Psych: no motor/sensory deficits, alert, cognition abnormalities ICD10 Worksheet Patient Problems: Problems Problem Status Onset Contusion of left chest wall Acute Subdural hematoma Acute Diverticulitis Acute
[2017-02-20 14:54] LABS: ANION GAP 6 mEq/L (8-16); CALCIUM 7.9 mg/dL (8.5-10.4); CARBON DIOXIDE 24 mEq/l (22-31); CHLORIDE 105 mEq/L (97-110); GLOMERULAR FILTRATION RATE > 60; GLUCOSE 165 mg/dL (70-100); POTASSIUM 5.8 mEq/L (3.5-5.2); SODIUM 135 mEq/L (134-144)
[2017-02-20] MEDS: METOPROLOL SUCCINATE XR 50 MG TAB PO SCH (21:30)
[2017-02-20] MEDS: NS 1,000 ML IV SCH (21:46)
[2017-02-20] MEDS: POLYETHYLENE GLYCOL 3350 17 GM PKT PO SCH (22:12)
[2017-02-20] MEDS: DULoxetine 30 MG CAP PO SCH (22:12)
[2017-02-20] MEDS: ATORVASTATIN CALCIUM 10 MG TAB PO SCH (22:12)
[2017-02-20] MEDS: TAMSULOSIN HCL 0.4 MG CAP PO SCH (22:13)
[2017-02-21] MEDS: HALOPERIDOL LACT 5 MG/ML INJ IVP PRN ×2 (01:05→09:24)
[2017-02-21] MEDS: NS 1,000 ML IV SCH (02:48)
[2017-02-21] MEDS: DEXMEDETOMIDINE HCL 1,000 MCG in NS 250 ML IV SCH (04:41)
[2017-02-21] MEDS: LEVOTHYROXINE 25 MCG TAB PO SCH (05:24)
--- NOTE | 2017-02-21 06:34 | SOAPPROG ---
SOAP Progress Note Assessment/Plan: Assessment:POD#2 s/p evacuation of right frontal SDH, placement of drain Plan: -drain output 285, continue -CT head tomorrow morning to consider drain removal -patient has been agitated, will see how he does during the day, will add seroquel PRN -PT/OT/speech -OOB as much as possible during the day -follow neuro exam, please call with any changes 02/21/17 06:32 Subjective: agitated overnight, sleeping now Objective: Vital Signs Temp Pulse Resp BP Pulse Ox 37.1 C 58 L 17 147/72 H 97 02/21/17 04:00 02/21/17 06:00 02/21/17 06:00 02/21/17 06:00 02/21/17 06:00 Laboratory Results 02/20/17 14:29 02/20/17 02/21/17 02/22/17 05:59 05:59 05:59 Intake Total 1411 3322 Output Total 1605 835 Balance -194 2487 PT 12.6 SEC (12.0-15.0) 02/18/17 16:07 INR 0.95 (0.83-1.16) 02/18/17 16:07 sleeping now, has been agitated, strength full, wound c/d/i - Pending Discharge Pending Discharge Within 24 Hours: No Pending Discharge Within 48 Hours: No ICD10 Worksheet Patient Problems: Problems Problem Status Onset Contusion of left chest wall Acute Subdural hematoma Acute Diverticulitis Acute
[2017-02-21] MEDS: INSULIN LISPRO 100 UNIT/ML SC SCH ×3 (08:24→18:09)
[2017-02-21] MEDS: levETIRAcetam 1,000 MG in NS 100 ML IV SCH ×2 (09:08→21:16)
--- NOTE | 2017-02-21 09:19 | TRAUMAPN ---
Assessment/Plan: This is a 76-year-old gentleman who presented to the hospital from [place] with a history of dementia and multiple falls with an acute on chronic subdural hematoma on the right. 11 mm shift. Taken to the operating room for neuro surgical decompression with Dr. berman. Seen by Neurosurgery today with recommendations of continuation of the drain and reassessment. His baseline dementia has necessitated the use of anxiolytics and Precedex overnight. Thoughts of adding a long-term medication was considered by Neurosurgery. The patient is somnolent this morning he does respond intermittently to commands. He was reported to have equal muscle strength left and right by the nursing staff yesterday as well as having tolerated breakfast yesterday. Regular rate and rhythm Clear to auscultation Abdomen protuberant well-healed midline incision ecchymosis from heparin injection Extremities moving all 4 independently. Cannot assess technology professional strength 2+ over 2+ distal pulses Skin without rashes Neurologic unable to examine due to agitation Pupils 2 mm after narcotic infusion Impression Subdural hematoma acute on chronic status post craniotomy with indwelling drain. Agitated Unsure whether this is baseline dementia but clearly communication with the patient is difficult. We will continue to reassess. Long-term placement will be required after he stabilizes from the acute surgery Objective: Vital Signs Temp Pulse Resp BP Pulse Ox 37.1 C 58 L 17 147/72 H 97 02/21/17 04:00 02/21/17 06:00 02/21/17 06:00 02/21/17 06:00 02/21/17 06:00 Laboratory Results 02/20/17 14:29 02/20/17 02/21/17 02/22/17 05:59 05:59 05:59 Intake Total 1411 3322 Output Total 1605 835 Balance -194 2487 PT 12.6 SEC (12.0-15.0) 02/18/17 16:07 INR 0.95 (0.83-1.16) 02/18/17 16:07
[2017-02-21] MEDS: SENNOSIDES/DOCUSATE SODIUM TAB PO SCH ×2 (12:22→20:15)
[2017-02-21] MEDS: COLCHICINE 0.6 MG CAP/TAB PO SCH (12:22)
[2017-02-21] MEDS: ALLOPURINOL 300 MG TAB PO SCH (12:22)
[2017-02-21] MEDS: FINASTERIDE 5 MG TAB PO SCH (12:22)
[2017-02-21] MEDS: GABAPENTIN 400 MG CAP PO SCH ×3 (12:22→20:04)
[2017-02-21] MEDS: INSULIN GLARGINE 100 UNITS/ML SYRINGE SC SCH ×2 (12:22→21:17)
[2017-02-21] MEDS: LISINOPRIL 10 MG TAB PO SCH (12:23)
--- NOTE | 2017-02-21 13:56 | HOSPPROG ---
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 case d/w dr yanez Objective: Vital Signs Temp Pulse Resp BP Pulse Ox 37.3 C 58 L 16 155/74 H 94 02/21/17 12:00 02/21/17 12:00 02/21/17 12:00 02/21/17 12:00 02/21/17 12:00 Laboratory Results 02/20/17 14:29 02/20/17 02/21/17 02/22/17 05:59 05:59 05:59 Intake Total 1411 3322 Output Total 1605 835 Balance -194 2487 PT 12.6 SEC (12.0-15.0) 02/18/17 16:07 INR 0.95 (0.83-1.16) 02/18/17 16:07 - Physical Exam Constitutional: other (very agitated) Eyes: PERRL, anicteric sclera Ears, Nose, Mouth, Throat: moist mucous membranes, hearing normal Cardiovascular: regular rate and rhythym, No tachycardia Respiratory: no respiratory distress, no rales or rhonchi Gastrointestinal: normoactive bowel sounds, soft, non-tender abdomen Genitourinary: no bladder fullness, No church in urethra Skin: warm, normal color Musculoskeletal: full muscle strength, no muscle tenderness Neurologic: No AAOx3 ICD10 Worksheet Patient Problems: Problems Problem Status Onset Contusion of left chest wall Acute Subdural hematoma Acute Diverticulitis Acute
--- NOTE | 2017-02-21 14:35 | PDINTPN ---
Tea Plantation Worker Progress Note Assessment/Plan: Assessment/plan: 76 M s/p fall with SDH, s/p evacuation. History of untreated TYLER as well as DM. * s/p fall with SDH stable. Drain still in place * Delerium- combative off precedex drip. Avoid benzos. May be at baseline per family * TYLER- not likely to tolerate CPAP, use O2 PRN * DM controlled 02/21/17 14:34 Objective: Vital Signs Temp Pulse Resp BP Pulse Ox 37.3 C 58 L 16 149/87 H 96 02/21/17 12:00 02/21/17 12:00 02/21/17 14:00 02/21/17 14:00 02/21/17 14:00 Laboratory Results 02/20/17 14:29 02/20/17 02/21/17 02/22/17 05:59 05:59 05:59 Intake Total 1411 3322 Output Total 1605 835 Balance -194 2487 PT 12.6 SEC (12.0-15.0) 02/18/17 16:07 INR 0.95 (0.83-1.16) 02/18/17 16:07 Physical Exam - Physical Exam General Appearance: alert, anxiety, obese EENT: PERRL/EOMI Neck: supple Respiratory: lungs clear, normal breath sounds, No respiratory distress, No accessory muscle use Cardiac/Chest: regular rate, rhythm, No edema Abdomen: non-tender, soft, No distended Skin: normal color, warm/dry Lymphatic: no adenopathy Extremities: No pedal edema Neuro/Psych: alert, cognition abnormalities, No oriented x 3 ICD10 Worksheet Patient Problems: Problems Problem Status Onset Contusion of left chest wall Acute Subdural hematoma Acute Diverticulitis Acute
[2017-02-21 17:45] LABS: ALANINE AMINOTRANSFERASE 33 IU/L (21-72); ALBUMIN 2.9 g/dL (3.5-5.0); ALKALINE PHOSPHATASE 71 IU/L (38-126); ANION GAP 7 mEq/L (8-16); ASPARTATE AMINOTRANSFERASE 35 IU/L (17-59); BILIRUBIN,TOTAL 0.9 mg/dL (0.1-1.4); CALCIUM 8.6 mg/dL (8.5-10.4); CARBON DIOXIDE 24 mEq/l (22-31); CHLORIDE 103 mEq/L (97-110); GLOMERULAR FILTRATION RATE > 60; GLUCOSE 76 mg/dL (70-100); POTASSIUM 4.5 mEq/L (3.5-5.2); SODIUM 134 mEq/L (134-144); TOTAL PROTEIN 5.9 g/dL (6.3-8.2)
[2017-02-21] MEDS: QUEtiapine FUMARATE 25 MG TAB PO PRN (19:57)
[2017-02-21] MEDS: TAMSULOSIN HCL 0.4 MG CAP PO SCH (19:59)
[2017-02-21] MEDS: DULoxetine 30 MG CAP PO SCH (19:59)
[2017-02-21] MEDS: ATORVASTATIN CALCIUM 10 MG TAB PO SCH (19:59)
[2017-02-21] MEDS: METOPROLOL SUCCINATE XR 50 MG TAB PO SCH (20:04)
[2017-02-21] MEDS: POLYETHYLENE GLYCOL 3350 17 GM PKT PO SCH (20:15)
[2017-02-22] MEDS: HALOPERIDOL LACT 5 MG/ML INJ IVP PRN (00:09)
[2017-02-22] MEDS: QUEtiapine FUMARATE 25 MG TAB PO PRN ×2 (04:02→19:57)
[2017-02-22] MEDS: LEVOTHYROXINE 25 MCG TAB PO SCH (07:06)
--- NOTE | 2017-02-22 07:16 | SOAPPROG ---
SOAP Progress Note Assessment/Plan: Assessment:POD#3 s/p evacuation of right frontal SDH, placement of drain Plan: -drain output 280, bloody. -CT head today to consider drain removal -seroquel helped with agitation, will increase to 25-50mg. Mostly seems to be sundowning -PT/OT/speech -OOB as much as possible during the day -follow neuro exam, please call with any changes 02/21/17 06:32 02/22/17 07:16 02/22/17 07:16 Subjective: no new issues, remains somewhat agitated Objective: Vital Signs Temp Pulse Resp BP Pulse Ox 36.8 C 92 17 143/94 H 93 02/22/17 06:00 02/22/17 06:00 02/22/17 06:00 02/22/17 06:00 02/22/17 06:00 Laboratory Results 02/21/17 17:24 02/21/17 02/22/17 02/23/17 05:59 05:59 05:59 Intake Total 3322 1244 Output Total 835 3830 Balance 2487 -2586 PT 12.6 SEC (12.0-15.0) 02/18/17 16:07 INR 0.95 (0.83-1.16) 02/18/17 16:07 awake/agitated, DELAROSA with good strength, wounds c/d/i, small leak around drain - Pending Discharge Pending Discharge Within 24 Hours: No Pending Discharge Within 48 Hours: Yes Pending Discharge Date: 02/24/17 Pending Discharge Time: 11:00 ICD10 Worksheet Patient Problems: Problems Problem Status Onset Contusion of left chest wall Acute Subdural hematoma Acute Diverticulitis Acute
--- NOTE | 2017-02-22 08:45 | PDINTPN ---
Moving Van Driver Progress Note Assessment/Plan: Assessment/plan: 76 M s/p fall with SDH, s/p evacuation. History of untreated TYLER as well as DM. * s/p fall with SDH stable. Drain still in place. Head CT pending today with possible dc drain * Delerium- Responded well to seroquel though a bit somnolent today. Await repeat head CT * TYLER- not likely to tolerate CPAP, use O2 PRN- though he frequently removes it. * DM controlled Subjective: more relaxed today/somnolent Objective: Vital Signs Temp Pulse Resp BP Pulse Ox 37.0 C 88 18 143/94 H 96 02/22/17 07:54 02/22/17 07:54 02/22/17 07:54 02/22/17 07:54 02/22/17 07:54 Laboratory Results 02/21/17 17:24 02/21/17 02/22/17 02/23/17 05:59 05:59 05:59 Intake Total 3322 1244 Output Total 835 3830 Balance 2487 -2586 PT 12.6 SEC (12.0-15.0) 02/18/17 16:07 INR 0.95 (0.83-1.16) 02/18/17 16:07 Physical Exam - Physical Exam General Appearance: no apparent distress, obese EENT: PERRL/EOMI Neck: supple Respiratory: lungs clear, normal breath sounds, No respiratory distress Cardiac/Chest: regular rate, rhythm, No edema Abdomen: non-tender, soft, No distended Skin: normal color, warm/dry Lymphatic: no adenopathy Extremities: No pedal edema Neuro/Psych: cognition abnormalities ICD10 Worksheet Patient Problems: Problems Problem Status Onset Contusion of left chest wall Acute Subdural hematoma Acute Diverticulitis Acute
--- NOTE | 2017-02-22 08:49 | SOAPPROG ---
SOAP Progress Note Assessment/Plan: Assessment: seen earlier this am/ vs stable/ difficulty following instructions but cooperative afebrile/ cxr clear and stable/ cor rrr/ abd soft/ extremities ok tertiary survey stable Plan:subdural evac today 02/19/17 18:43 02/22/17 08:47 very somnolent and unresponsive to verbal stimuli/ moves all extremities/ received haldol last pm moderate shanique drainage/ afebrile/ vs stable chest clear cor rr abd soft extrem full rom plan head ct scan Objective: Vital Signs Temp Pulse Resp BP Pulse Ox 37.0 C 88 18 143/94 H 96 02/22/17 07:54 02/22/17 07:54 02/22/17 07:54 02/22/17 07:54 02/22/17 07:54 Laboratory Results 02/21/17 17:24 02/21/17 02/22/17 02/23/17 05:59 05:59 05:59 Intake Total 3322 1244 Output Total 835 3830 Balance 2487 -2586 PT 12.6 SEC (12.0-15.0) 02/18/17 16:07 INR 0.95 (0.83-1.16) 02/18/17 16:07 ICD10 Worksheet Patient Problems: Problems Problem Status Onset Contusion of left chest wall Acute Subdural hematoma Acute Diverticulitis Acute
[2017-02-22] MEDS: levETIRAcetam 1,000 MG in NS 100 ML IV SCH ×2 (09:00→20:12)
[2017-02-22] MEDS: ALLOPURINOL 300 MG TAB PO SCH (09:10)
[2017-02-22] MEDS: INSULIN LISPRO 100 UNIT/ML SC SCH ×3 (09:10→18:20)
[2017-02-22] MEDS: COLCHICINE 0.6 MG CAP/TAB PO SCH (09:10)
[2017-02-22] MEDS: LISINOPRIL 10 MG TAB PO SCH (09:11)
[2017-02-22] MEDS: INSULIN GLARGINE 100 UNITS/ML SYRINGE SC SCH ×2 (09:11→21:16)
[2017-02-22] MEDS: FINASTERIDE 5 MG TAB PO SCH (09:11)
[2017-02-22] MEDS: SENNOSIDES/DOCUSATE SODIUM TAB PO SCH ×2 (09:12→21:16)
[2017-02-22] MEDS: GABAPENTIN 400 MG CAP PO SCH ×3 (10:24→21:17)
[2017-02-22] MEDS: ACETAMINOPHEN 325 MG TAB PO PRN (12:06)
--- NOTE | 2017-02-22 15:20 | HOSPPROG ---
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 per family, often agitated and confused prior to sdh based on discussion w dr car, he is far off baseline hyperkalemia: resolved pulm nodule: follow up will tell when patient is more alert incontinence: replace church proph: scd's dispo: inpt Subjective: case d/w dr car- apparently was answering questions, holding a conversation, in irish, when in emergency department Objective: Vital Signs Temp Pulse Resp BP Pulse Ox 37.2 C 103 H 18 145/78 H 92 02/22/17 12:00 02/22/17 12:00 02/22/17 12:00 02/22/17 12:00 02/22/17 12:00 Laboratory Results 02/21/17 17:24 02/21/17 02/22/17 02/23/17 05:59 05:59 05:59 Intake Total 3322 1244 Output Total 835 3830 Balance 2487 -2586 PT 12.6 SEC (12.0-15.0) 02/18/17 16:07 INR 0.95 (0.83-1.16) 02/18/17 16:07 - Physical Exam Constitutional: no apparent distress, appears nourished Eyes: PERRL, anicteric sclera Ears, Nose, Mouth, Throat: moist mucous membranes, hearing normal Cardiovascular: regular rate and rhythym, no murmur, rub, or gallop Respiratory: no respiratory distress, no rales or rhonchi Gastrointestinal: normoactive bowel sounds, soft, non-tender abdomen Genitourinary: no bladder fullness, No church in urethra Skin: warm, normal color Musculoskeletal: full muscle strength, no muscle tenderness, No no joint effusions Neurologic: No AAOx3, No sensation intact bilaterally Psychiatric: No interacting appropriately Lymph, Heme, Immunologic: no cervical LAD ICD10 Worksheet Patient Problems: Problems Problem Status Onset Contusion of left chest wall Acute Subdural hematoma Acute Diverticulitis Acute
--- NOTE | 2017-02-22 17:05 | ASMTCASEMG ---
Living Arrangements What is your living Answers: Alone arrangement? Who do you live with? Type Of Residence What kind of residence do Answers: Penitentiary Facility you live in? Type of Residence Facility Name Notes: [facility] Discharge Plan Comments Coordination Status Comments Notes: Patient is a 76yo man who resides at [facility]. He has 2 daughters, Janki and Carleen. Patient was admitted for left chest contusion, hypoxia, and right SDH. He is going for surgical procedure today. PT/OT/SPL/Inpatient Rehab have been ordered. Awaiting therapies evaluations to d/t d/c needs. CM will follow. Date Signed: 02/19/2017 02:59 PM Electronically Signed By:Swathi Louis
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
[2017-02-22] MEDS: METOPROLOL SUCCINATE XR 50 MG TAB PO SCH (19:57)
[2017-02-22] MEDS: TAMSULOSIN HCL 0.4 MG CAP PO SCH (20:04)
--- NOTE | 2017-02-22 21:12 | SOAPPROG ---
SOAP Progress Note Assessment/Plan: Assessment: seen earlier this am/ vs stable/ difficulty following instructions but cooperative afebrile/ cxr clear and stable/ cor rrr/ abd soft/ extremities ok tertiary survey stable Plan:subdural evac today 02/19/17 18:43 02/22/17 08:47 very somnolent and unresponsive to verbal stimuli/ moves all extremities/ received haldol last pm moderate shanique drainage/ afebrile/ vs stable chest clear cor rr abd soft extrem full rom plan head ct scan 02/22/17 21:[address] BUCHANAN AND DR. [facility] THERE IS NO FURTHER NEED FOR TRAUMA FOLLOWING THIS PATIENT EVEN THOUGH HE IS STILL IN THE ICU FOR MEDICAL REASONS. TRAUMA SERVICE WILL SIGN OFF BOTH FEEL FREE TO CALL US IF THERE IS FUTURE NEED. PATIENT WILL NEED FOLLOW-UP FOR HIS PULMONARY NODULE AT SOME POINT Objective: Vital Signs Temp Pulse Resp BP Pulse Ox 37.5 C 100 22 H 120/73 96 02/22/17 20:00 02/22/17 20:00 02/22/17 20:00 02/22/17 20:00 02/22/17 20:00 Laboratory Results 02/21/17 17:24 02/21/17 02/22/17 02/23/17 05:59 05:59 05:59 Intake Total 3322 1244 465 Output Total 837 8510 1395 Balance 2487 -2586 -930 PT 12.6 SEC (12.0-15.0) 02/18/17 16:07 INR 0.95 (0.83-1.16) 02/18/17 16:07 ICD10 Worksheet Patient Problems: Problems Problem Status Onset Contusion of left chest wall Acute Subdural hematoma Acute Diverticulitis Acute
[2017-02-22] MEDS: ATORVASTATIN CALCIUM 10 MG TAB PO SCH (21:15)
[2017-02-22] MEDS: DULoxetine 30 MG CAP PO SCH (21:16)
[2017-02-22] MEDS: POLYETHYLENE GLYCOL 3350 17 GM PKT PO SCH (21:16)
[2017-02-23] MEDS: LEVOTHYROXINE 25 MCG TAB PO SCH (05:20)
[2017-02-23] MEDS: INSULIN LISPRO 100 UNIT/ML SC SCH ×3 (08:48→18:41)
--- NOTE | 2017-02-23 09:07 | HOSPPROG ---
Hospitalist Progress Note Assessment/Plan: Examined/interviewed with eyewear manufacturing tech #Right frontal SDH: PD #4 evacuation. Repeat CTH today with less edema, stable SDH. Pull drain today #Acute on chronic encephalopathy: complicated with underlying dementia #Agitation: PRN Zyprexa #Diabetes: hold glargine since not eating well #Goals: had long conversation with daughter. She states that he does not like hospital and he would not want PEG/feeding tube and would likely pull out. Discussed palliative care and hospice if mental status does not improve #Diet: IVFs. Trial swallow eval. If not, will have decide best option with family Critical care time spent: 70 min with patient, reviewing prior labs/imaging and counseling daughters, son-in-law on prognosis and feeding options, goals and palliative care Subjective: drain pulled today Objective: Vital Signs Temp Pulse Resp BP Pulse Ox 37.0 C 71 16 116/52 L 94 02/23/17 04:00 02/23/17 06:00 02/23/17 06:00 02/23/17 06:00 02/23/17 06:00 Laboratory Results 02/21/17 17:24 02/22/17 02/23/17 02/24/17 05:59 05:59 05:59 Intake Total 1244 1103 Output Total 3830 2190 Balance -2586 -1087 PT 12.6 SEC (12.0-15.0) 02/18/17 16:07 INR 0.95 (0.83-1.16) 02/18/17 16:07 - Physical Exam Constitutional: obese Eyes: PERRL Ears, Nose, Mouth, Throat: moist mucous membranes Cardiovascular: regular rate and rhythym, no murmur, rub, or gallop, No edema Respiratory: no respiratory distress, no rales or rhonchi Gastrointestinal: normoactive bowel sounds, soft, non-tender abdomen Genitourinary: no bladder fullness Skin: warm Musculoskeletal: other (5/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 ) Neurologic: other (nonverbal. Opens eyes with sternal rub, but not answering questions) ICD10 Worksheet Patient Problems: Problems Problem Status Onset Contusion of left chest wall Acute Subdural hematoma Acute Diverticulitis Acute
--- NOTE | 2017-02-23 09:46 | NEUSURGPN ---
Assessment/Plan: Assessment:POD#4 s/p evacuation of right frontal SDH, placement of drain Plan: -drain output 115 in last 24hrs- serosang in bulb -CT head shows decreased pneumocephalus, stable remaining SDH -seroquel helped with agitation, Mostly seems to be sundowning -PT/OT/speech -OOB as much as possible during the day -follow neuro exam, please call with any changes -Discussed with Dr. Mena and images reviewed with Dr. Mena as well Subjective: Unable to obtain. On O2 mask, eyes closed, but following commands. Objective: awake/agitated, Will not open eyes to command but with manual opening of eyes-PERRL, DELAROSA with good strength but Left arm seems weaker then right although exam is somewhat limited due to agitation/somnolence wounds c/d/i, Minimal serosang in bulb- no suction- 115 out in last 24hrs Catheter Insertion Date: 02/19/17 - Physician Discussed Patient with : [facility] Physical Exam - Vitals, I&O, Labs I and O 02/22/17 02/23/17 02/24/17 05:59 05:59 05:59 Intake Total 1244 1103 Output Total 3830 2190 Balance -2586 -1087 Weight 116.9 kg Intake: Oral (ml) 0 0 IV Infused (ml) 1244 1103 Ns 1,000 ml @ 100 mls/hr 1244 993 IV CONT SAL Rx#: [id number] levETIRAcetam 1,000 mg In 110 Ns 100 ml @ 440 mls/hr IV BID SAL Rx#:[id number] Output: Urine (ml) 3550 2075 Catheter 3550 2075 SVETA Drain Output (ml) 280 115 Right Posterior Head 280 115 Brendan Porter Other: Number of Stools Catheter 1 1 Vital Signs Temp Pulse Resp BP Pulse Ox 37.0 C 67 18 107/69 95 02/23/17 04:00 02/23/17 08:00 02/23/17 08:00 02/23/17 08:00 02/23/17 08:00 Laboratory Results 02/21/17 17:24 ICD10 Worksheet Patient Problems: Problems Problem Status Onset Contusion of left chest wall Acute Subdural hematoma Acute Diverticulitis Acute
[2017-02-23] MEDS: SENNOSIDES/DOCUSATE SODIUM TAB PO SCH ×2 (10:53→21:17)
[2017-02-23] MEDS: INSULIN GLARGINE 100 UNITS/ML SYRINGE SC SCH (11:13)
[2017-02-23] MEDS: levETIRAcetam 1,000 MG in NS 100 ML IV SCH ×2 (11:21→21:16)
[2017-02-23] MEDS: LISINOPRIL 10 MG TAB PO SCH (13:14)
[2017-02-23] MEDS: COLCHICINE 0.6 MG CAP/TAB PO SCH (13:14)
[2017-02-23] MEDS: FINASTERIDE 5 MG TAB PO SCH (13:14)
[2017-02-23] MEDS: GABAPENTIN 400 MG CAP PO SCH ×3 (13:14→22:05)
[2017-02-23] MEDS: ALLOPURINOL 300 MG TAB PO SCH (13:14)
[2017-02-23] MEDS ORDERED: INSULIN GLARGINE 100 UNITS/ML SYRINGE SC SCH (21:00)
[2017-02-23] MEDS: POLYETHYLENE GLYCOL 3350 17 GM PKT PO SCH (21:17)
[2017-02-23] MEDS: DULoxetine 30 MG CAP PO SCH (21:37)
[2017-02-23] MEDS: ATORVASTATIN CALCIUM 10 MG TAB PO SCH (21:37)
[2017-02-23] MEDS: TAMSULOSIN HCL 0.4 MG CAP PO SCH (21:39)
[2017-02-23] MEDS: METOPROLOL SUCCINATE XR 50 MG TAB PO SCH (21:39)
[2017-02-23] MEDS: QUEtiapine FUMARATE 25 MG TAB PO PRN (22:05)
[2017-02-23] MEDS: HALOPERIDOL LACT 5 MG/ML INJ IVP PRN (22:47)
[2017-02-24 05:20] LABS: ANION GAP 11 mEq/L (8-16); CALCIUM 8.4 mg/dL (8.5-10.4); CARBON DIOXIDE 24 mEq/l (22-31); CHLORIDE 106 mEq/L (97-110); CREATININE 0.9 mg/dL (0.7-1.3); GLOMERULAR FILTRATION RATE > 60; GLUCOSE 110 mg/dL (70-100); POTASSIUM 4.2 mEq/L (3.5-5.2); SODIUM 141 mEq/L (134-144)
[2017-02-24] MEDS: LEVOTHYROXINE 25 MCG TAB PO SCH (06:41)
[2017-02-24] MEDS: NS 1,000 ML IV SCH (07:11)
--- NOTE | 2017-02-24 08:23 | HOSPPROG ---
Hospitalist Progress Note Assessment/Plan: Examined/interviewed with vice chairman #Right frontal SDH: PD #4 evacuation. Repeat CTH today with less edema, stable SDH. Pull drain today #Acute on chronic encephalopathy: complicated with underlying dementia #Agitation: PRN Zyprexa #Diabetes: hold glargine since not eating well #Goals: had long conversation with daughter. She states that he does not like hospital and he would not want PEG/feeding tube and would likely pull out. Discussed palliative care and hospice if mental status does not improve #Diet: IVFs. Trial swallow eval. If not, will have decide best option with family Critical care time spent: 70 min with patient, reviewing prior labs/imaging and counseling daughters, son-in-law on prognosis and feeding options, goals and palliative care Objective: Vital Signs Temp Pulse Resp BP Pulse Ox 37.1 C 70 20 128/62 H 95 02/24/17 04:00 02/24/17 07:46 02/24/17 07:46 02/24/17 07:46 02/24/17 07:46 Laboratory Results 02/24/17 05:02 02/23/17 02/24/17 02/25/17 05:59 05:59 05:59 Intake Total 1103 1400 Output Total 2190 1340 Balance -1087 60 PT 12.6 SEC (12.0-15.0) 02/18/17 16:07 INR 0.95 (0.83-1.16) 02/18/17 16:07 ICD10 Worksheet Patient Problems: Problems Problem Status Onset Contusion of left chest wall Acute Subdural hematoma Acute Diverticulitis Acute
[2017-02-24] MEDS: LISINOPRIL 10 MG TAB PO SCH (08:59)
[2017-02-24] MEDS: FINASTERIDE 5 MG TAB PO SCH (09:00)
[2017-02-24] MEDS: GABAPENTIN 400 MG CAP PO SCH ×3 (09:00→22:03)
[2017-02-24] MEDS: COLCHICINE 0.6 MG CAP/TAB PO SCH (09:00)
[2017-02-24] MEDS: ALLOPURINOL 300 MG TAB PO SCH (09:01)
[2017-02-24] MEDS: levETIRAcetam 1,000 MG in NS 100 ML IV SCH (09:06)
[2017-02-24] MEDS: INSULIN LISPRO 100 UNIT/ML SC SCH ×3 (09:07→18:27)
[2017-02-24] MEDS: SENNOSIDES/DOCUSATE SODIUM TAB PO SCH (09:13)
[2017-02-24] MEDS: ACETAMINOPHEN 325 MG TAB PO PRN ×3 (09:57→22:09)
--- NOTE | 2017-02-24 10:02 | HOSPPROG ---
Hospitalist Progress Note Assessment/Plan: Examined/interviewed with oracle obiee developer #Right frontal SDH: PD #5 evacuation. Repeat CTH 02/24 stable. Drain pulled. Mental status improved. Eating today #Acute on chronic encephalopathy: mental status at baseline per family. PRN Olanzapine #Acute hypoxemic resp failure: atelectasis? CXR (personally reviewed) without PNA. Patient has TYLER and wears oxygen intermittently at baseline; daughters state he is not compliant with it at home #Diabetes: hold glargine since not eating well #Goals: again long conversation with daughters (one MDPOA). Patient is agitated baseline and not compliant with oxygen and other treatments. They agree that he would not want to remain in hospital. They understand complications of not wearing oxygen that includes . Plan for DC to [facility] with hospice. MOST form completed stating DNR. #Disp: hospice to eval tomorrow and DC back to [place] after Critical care time spent: 80 min bedside with patient, reviewing imaging and long discussion with family on hospice and discharge plan. Subjective: eating this morning. Very agitated, impulsive per family at baseline Objective: Vital Signs Temp Pulse Resp BP Pulse Ox 37.1 C 70 20 128/62 H 95 02/24/17 04:00 02/24/17 07:46 02/24/17 07:46 02/24/17 07:46 02/24/17 07:46 Laboratory Results 02/24/17 05:02 02/23/17 02/24/17 02/25/17 05:59 05:59 05:59 Intake Total 1103 1400 Output Total 2190 1340 Balance -1087 60 PT 12.6 SEC (12.0-15.0) 02/18/17 16:07 INR 0.95 (0.83-1.16) 02/18/17 16:07 - Physical Exam Constitutional: obese, uncomfortable Eyes: PERRL Ears, Nose, Mouth, Throat: moist mucous membranes, hearing normal Cardiovascular: regular rate and rhythym Respiratory: no respiratory distress, reduced air movement Gastrointestinal: normoactive bowel sounds Genitourinary: no bladder fullness Skin: warm Musculoskeletal: other (good hand assembly supervisor both 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
--- NOTE | 2017-02-24 10:20 | NEUSURGPN ---
Date of Surgery: 02/19/17 Post Op Day: 5 Assessment/Plan: 76 yr old male s/p evacuation of right frontal SDH -SVETA discontinued yesterday -PT/OT/speech -Patient expresses hunger this am, swallow eval ordered -OOB as much as possible during the day -follow neuro exam, please call with any changes -Patient may transfer to floor per neurosurgery but will defer to Medicine regarding oxygenation issues -Discussed with Dr. Mena Subjective: Patient sitting up in bed asking for food Objective: Awake, follows commands Patient knows he is in hospital but does not know the month Incision CDI PERRLA EOMI 10/17 BUE, BLE Neuro Check Frequency: per routine Urinary Catheter in Place: No Catheter Insertion Date: 02/19/17 - Physician Discussed Patient with : [facility] Physical Exam - Vitals, I&O, Labs I and O 02/23/17 02/24/17 02/25/17 05:59 05:59 05:59 Intake Total 1103 1400 Output Total 2190 1340 Balance -1087 60 Weight 116.9 kg Intake: Oral (ml) 0 IV Intake (ml) 1300 IV Infused (ml) 1103 100 Ns 1,000 ml @ 100 mls/hr 993 IV CONT SAL Rx#: [id number] levETIRAcetam 1,000 mg In 110 100 Ns 100 ml @ 440 mls/hr IV BID SAL Rx#:[id number] Output: Urine (ml) 2075 1300 Catheter 2075 1300 SVETA Drain Output (ml) 115 40 Right Posterior Head 115 40 Brendan Porter Other: Number of Stools Catheter 1 Vital Signs Temp Pulse Resp BP Pulse Ox 37.1 C 70 20 128/62 H 95 02/24/17 04:00 02/24/17 07:46 02/24/17 07:46 02/24/17 07:46 02/24/17 07:46 Laboratory Results 02/24/17 05:02 ICD10 Worksheet Patient Problems: Problems Problem Status Onset Contusion of left chest wall Acute Subdural hematoma Acute Diverticulitis Acute
--- NOTE | 2017-02-24 11:44 | ASMTCMCOM ---
CM Note CM Note Notes: Contacted [facility] to determine patient's baseline behavior. They report that he resides on their 4th floor and moves around independently, needs reminders due to his dementia, but not a behavior problem. Rn spoke to family and they report that patient refuses to wear O2 at [facility]-it's a chronic problem. He also smokes at that facility. Patient ate a meal today. May now be at his baseline. Patient may do better in a familar setting and best to return to [facility]. Date Signed: 02/24/2017 11:43 AM Electronically Signed By:Geno Rust LCSW
[2017-02-24] MEDS ORDERED: OLANZapine 2.5 MG TAB PO PRN (13:24)
--- NOTE | 2017-02-24 14:37 | ASMTCMCOM ---
CM Note CM Note Notes: Spoke to Tk in Admissions at [facility] and explained that Hospitalist was worried that patient not wearing his O2 and very unsteady on his feet. Hospitalist met w/family about her concerns and he was made a DNR. Hospitalist concerned that patient might have an AL due to lack of compliance and asked for Hospice eval and tx. Contacted [facility] and asked which Hospice agencies they preferred to worked with and thry prefer [facility]. This Masonry Instructor made a referral to [facility] and asked if they could meet with family. [facility] to meet with family Thursday. Date Signed: 02/24/2017 02:37 PM Electronically Signed By:Geno Rust LCSW
[2017-02-24] MEDS: QUEtiapine FUMARATE 25 MG TAB PO PRN ×3 (15:57→22:16)
[2017-02-24 16:33] VITALS: TEMP 97.5
--- NOTE | 2017-02-24 16:34 | ASMTCMCOM ---
CM Note CM Note Notes: CM spoke with daughters through freelance interpreter/translator. Dtrs confused about the role of hospice and pt receiving therapy at [facility]. CM called pt's RN at - he receives restorative therapy there which is nonskilled. Pt is not cooperative and tends to do what he wants. The d/c plan is for pt to return to and [facility] will f/u with his dtr tomorrow afternoon with a Vietnamese speaking RN. Date Signed: 02/24/2017 04:34 PM Electronically Signed By:Elvi Temple
[2017-02-24] MEDS: ATORVASTATIN CALCIUM 10 MG TAB PO SCH (22:02)
[2017-02-24] MEDS: DULoxetine 30 MG CAP PO SCH (22:02)
[2017-02-24] MEDS: levETIRAcetam 500 MG TAB PO SCH (22:02)
[2017-02-24] MEDS: TAMSULOSIN HCL 0.4 MG CAP PO SCH (22:04)
[2017-02-24] MEDS: METOPROLOL SUCCINATE XR 50 MG TAB PO SCH (22:04)
[2017-02-25] MEDS: POLYETHYLENE GLYCOL 3350 17 GM PKT PO SCH (01:06)
[2017-02-25] MEDS: SENNOSIDES/DOCUSATE SODIUM TAB PO SCH ×2 (01:06→08:55)
[2017-02-25] MEDS: LEVOTHYROXINE 25 MCG TAB PO SCH (05:26)
[2017-02-25 07:36] VITALS: BP 118/82; PULSE 99; RESP 14; O2SAT 80
[2017-02-25] MEDS: COLCHICINE 0.6 MG CAP/TAB PO SCH ×2 (08:29→11:35)
[2017-02-25] MEDS: ALLOPURINOL 300 MG TAB PO SCH ×2 (08:29→11:33)
[2017-02-25] MEDS: FINASTERIDE 5 MG TAB PO SCH ×2 (08:30→11:35)
[2017-02-25] MEDS: GABAPENTIN 400 MG CAP PO SCH ×3 (08:53→18:27)
[2017-02-25] MEDS: LISINOPRIL 10 MG TAB PO SCH ×2 (08:56→11:34)
[2017-02-25] MEDS: INSULIN LISPRO 100 UNIT/ML SC SCH ×3 (08:56→18:27)
[2017-02-25] MEDS: levETIRAcetam 500 MG TAB PO SCH (11:34)
--- NOTE | 2017-02-25 11:36 | NEUSURGPN ---
Date of Surgery: 02/19/17 Post Op Day: 6 Assessment/Plan: 76 yr old male s/p evacuation of right frontal SDH -PT/OT/speech -Patient refusing oral intake, family feels patient may do better back in the alf environment, will defer to case management for placement -OOB as much as possible during the day -follow neuro exam, please call with any changes -Patient may transfer to back to SNF from our standpoint -Discussed with Dr. Mena Subjective: patient sitting on edge of bed, compulsive Objective: Awake, follows commands Not oriented to place or time, patient states he is in [place] and it is November Incision CDI PERRLA EOMI / BUE, BLE Neuro Check Frequency: per routine Urinary Catheter in Place: No Catheter Insertion Date: 02/19/17 - Physician Discussed Patient with : [facility] Physical Exam - Vitals, I&O, Labs I and O 02/24/17 02/25/17 02/26/17 05:59 05:59 05:59 Intake Total 1400 250 Output Total 1340 700 Balance 60 -450 Intake: Oral (ml) 250 IV Intake (ml) 1300 IV Infused (ml) 100 levETIRAcetam 1,000 mg In 100 Ns 100 ml @ 440 mls/hr IV BID SAL Rx#:[id number] Output: Urine (ml) 1300 700 Catheter 1300 700 SVETA Drain Output (ml) 40 Right Posterior Head 40 Brendan Porter Other: Number of Voids Catheter 1 Toilet 2 Number of Stools Incontinence 1 Vital Signs Temp Pulse Resp BP Pulse Ox 36.4 C 99 14 118/82 H 80 L 02/24/17 16:00 02/25/17 07:31 02/25/17 07:31 02/25/17 07:31 02/25/17 07:31 Laboratory Results 02/24/17 05:02 ICD10 Worksheet Patient Problems: Problems Problem Status Onset Contusion of left chest wall Acute Subdural hematoma Acute Diverticulitis Acute
[2017-02-25] MEDS: ACETAMINOPHEN 325 MG TAB PO PRN (11:39)
--- NOTE | 2017-02-25 12:40 | PDIAF ---
- Diagnosis Diagnosis: SDH Code Status: Do Not Resuscitate - Medication Management Discharge Medications: Medications to Continue on Transfer Finasteride [Proscar 5 MG (*)] 5 mg PO DAILY #7 tab 01/08/12 [Last Taken ] Gabapentin [Neurontin 400 MG (*)] 400 mg PO TID 09/25/14 [Last Taken 02/18/17] Levothyroxine [Synthroid 25 mcg (*)] 25 mcg PO DAILY06 09/25/14 [Last Taken 11/29] Polyethylene Glycol 3350 [Miralax 17 gm (*)] 17 gm PO HS 09/25/14 [Last Taken ] metFORMIN HCL [Glucophage 500 mg (*)] 1,000 mg PO BIDMEAL 09/25/14 [Last Taken 02/18/17] Acetaminophen [Tylenol ES 500 mg (*)] 500 mg PO Q6 PRN 02/18/17 [Last Taken 11/29] Allopurinol [Allopurinol 300 MG (RX)] 300 mg PO DAILY 02/18/17 [Last Taken Unknown] Atorvastatin Calcium [Lipitor 10 mg (*)] 10 mg PO HS 02/18/17 [Last Taken ] Colchicine [Colchicine (*)] 1.2 mg PO DAILY 02/18/17 [Last Taken 02/18/17] DULoxetine [Cymbalta 30 MG (*)] 30 mg PO HS 02/18/17 [Last Taken 02/17/17] Insulin Glargine [Lantus 100 UNITS/ML (*)] 30 units SC BID 02/18/17 [Last Taken 02/18/17] Insulin Lispro [humALOG LISPRO 100 units/ml (*)] 10 unit SC TIDMEAL 02/18/17 [ Last Taken 02/18/17] Lisinopril [Zestril 10 mg (*)] 10 mg PO DAILY 02/18/17 [Last Taken 02/18/17] Metoprolol Succinate 75 mg PO HS 02/18/17 [Last Taken 02/17/17] Tamsulosin HCl [Flomax 0.4 MG (*)] 0.4 mg PO HS 02/18/17 [Last Taken 02/17/17] Bacitracin Ointment 1 husam TP DAILY #1 pkt 02/25/17 [Last Taken Unknown] QUEtiapine FUMARATE [Seroquel 25 mg (*)] 25 mg PO HS PRN #0 tab 02/25/17 [Last Taken Unknown] levETIRAcetam [Keppra 500 mg (*)] 1,000 mg PO BID tab 02/25/17 [Last Taken Unknown] Discharge Medications: Refer to the Discharge Home Medication list for PRN reason. - Orders Services needed: Registered Nurse, Certified Armored Cable Machine Operator Oxygen: please encourage patient to wear oxygen Diet Texture: Dysphagia 3 - Advanced - Moist, Bite-Size, Thin Liquids, Meds Whole w/Liquids - Follow Up Care Current Providers and Referrals: ROD VEGA [Primary Care Provider] - As per Instructions
--- NOTE | 2017-02-25 14:07 | ASMTCMCOM ---
CM Note CM Note Notes: Pt medically stable for d/c back to [facility]. Pt is scheduled for 1530 bariatric stretcher pickup from [facility]. [facility] notified, orders faxed and Tavo Giordano updated, med list faxed. Date Signed: 02/25/2017 02:06 PM Electronically Signed By:REYMUNDO Urena
[2017-02-25] MEDS ORDERED: ONDANSETRON 4 MG/2 ML VIAL IVP PRN (17:23)
[2017-02-25] MEDS ORDERED: ONDANSETRON DISINTEGRATING 4 MG TAB PO PRN (17:23)
[2017-02-25] MEDS ORDERED: ACETAMINOPHEN 325 MG TAB PO PRN (17:23)
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
--- NOTE | 2017-02-26 09:47 | GDS ---
[f rep st] DISCHARGE SUMMARY DISCHARGE DIAGNOSES: 1. Acute on chronic encephalopathy. 2. Subdural hematoma. 3. Fall. 4. Agitation. 5. Acute on chronic hypoxic respiratory failure. 6. Hypothyroidism. 7. Dementia. HISTORY OF PRESENT ILLNESS: A 76-year-old Slovak-speaking male, with a history of hypothyroidism, jaimee festus, who lives at [facility]. He has had multiple falls over a week prior to admission. Day of admission, he fell, and he was noted to be hypoxic as he is not compliant with his home oxygen. CTA was performed, but negative PE. He had a CT that showed acute on chronic subdural with an 11 mm left -to-right shift. HOSPITAL COURSE BY PROBLEM: 1. Acute subdural hematoma: Patient underwent evacuation by Dr. Mena without complication. 2. Acute on chronic encephalopathy: Underlying dementia. The patient was more somnolent with acute subdural, but this improved. At the time of discharge, his daughter stated that he was at his basel ine mental status. 3. Acute on chronic hypoxemic respiratory failure: Patient is supposed to wear oxygen at home, but often pulls off his oxygen mask, per his daughters. He was hypoxic here when pulled off mask. I str essed the importance of him wearing this. Otherwise, he could have either cardiac or pulmonary arres t. They were aware of these risks. 4. Hypothyroidism, levothyroxine. 5. Agitation, p.r.n. Seroquel. GOALS: I had several conversations with the patient's daughters, and they state that he does not lik e being in the hospital. He has been known to pull out tubes and IVs. Given his underlying dementia and intermittent agitation, they deemed it best to discharge him back to [facility] on hospice care to focus on his quality and comfort rather than returning to the hospital. Hospice was to evaluate t he patient at the nursing facility. DISPOSITION: Patient was stable for discharge. NEW MEDICATIONS: None. TIME SPENT ON DISCHARGE: 45 minutes, counseling family and coordinating transfer. /[id number]/MODL
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
== END 2017-02-25 19:29 | DRG 25 ==
LOC: EDUNIT# → F2N 20:20 → F3N 02-24 11:16 → UNDODISIN 02-25 15:51
PROVIDERS: ADMIT Surgery; ATTEND Surgery
PROC: 009400Z Drainage of Intracranial Subdural Space with Drainage Device, Open Approach (ICD-10-PCS; principal; 2017-02-18)
DX: S06.5X0A Traumatic subdural hemorrhage without loss of consciousness, initial encounter (principal); G93.5 Compression of brain; W19.XXXA Unspecified fall, initial encounter; G93.40 Encephalopathy, unspecified; J96.21 Acute and chronic respiratory failure with hypoxia; G47.33 Obstructive sleep apnea (adult) (pediatric); E87.1 Hypo-osmolality and hyponatremia; E87.6 Hypokalemia; E03.9 Hypothyroidism, unspecified; G30.9 Alzheimer's disease, unspecified; F02.80 Dementia in other diseases classified elsewhere, unspecified severity, without behavioral disturbance, psychotic disturbance, mood disturbance, and anxiety; E11.22 Type 2 diabetes mellitus with diabetic chronic kidney disease; N18.9 Chronic kidney disease, unspecified; I12.9 Hypertensive chronic kidney disease with stage 1 through stage 4 chronic kidney disease, or unspecified chronic kidney disease; Z91.81 History of falling; E78.5 Hyperlipidemia, unspecified; M10.9 Gout, unspecified; N40.1 Benign prostatic hyperplasia with lower urinary tract symptoms; N39.498 Other specified urinary incontinence; E11.40 Type 2 diabetes mellitus with diabetic neuropathy, unspecified; F17.210 Nicotine dependence, cigarettes, uncomplicated; K21.9 Gastro-esophageal reflux disease without esophagitis; E55.9 Vitamin D deficiency, unspecified; R91.1 Solitary pulmonary nodule
CPT/HCPCS: 92526-GN; 92610-GN; 97110-GP; 97161-GP; 97167-GO; 97530-GP; C1713; G8978-GP-CM; G8979-GP-CJ; G8987-GO-CM; G8988-GO-CK; G8996-GN-CI; G8997-GN-CH; G8998-GN-CH; J0171; J0690; J1815; J1953; J2370; J2405; J2704; J3010; Q9967

== ENCOUNTER → 2017-03-27 | Outpatient (CLI) | payer OTHER, MEDICAID | LOC: FIMAGING 03-19 10:57 | PROVIDERS: ATTEND Physician Assistant Surgical | DX: I62.00 Nontraumatic subdural hemorrhage, unspecified (principal) ==

== ENCOUNTER → 2017-04-21 | Outpatient (CLI) | payer OTHER, MEDICAID | LOC: FIMAGING 10:21 | PROVIDERS: ATTEND Neurological Surgery | DX: I62.02 Nontraumatic subacute subdural hemorrhage (principal) ==

== ENCOUNTER 2017-05-23 13:50 | Emergency (ER) | payer OTHER, MEDICAID ==
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
[2017-05-23 15:47] VITALS: BP 144/80; PULSE 81; RESP 16; TEMP 98.6; O2SAT 99
== END 2017-05-23 15:46 | disposition home or self-care (01) ==
DX: S00.83XA Contusion of other part of head, initial encounter (principal); S40.022A Contusion of left upper arm, initial encounter; F17.200 Nicotine dependence, unspecified, uncomplicated; I10 Essential (primary) hypertension; I25.10 Atherosclerotic heart disease of native coronary artery without angina pectoris; Z86.73 Personal history of transient ischemic attack (TIA), and cerebral infarction without residual deficits; W18.09XA Striking against other object with subsequent fall, initial encounter; Y92.129 Unspecified place in nursing home as the place of occurrence of the external cause